=== PATIENT | female | born 2000 | race Caucasian/White ===

== ENCOUNTER 2022-03-12 09:53 | Outpatient (RCR) | payer OTHER, SELFPAY ==
--- NOTE | 2022-03-12 10:07 | BH.SGPN.GN ---
Behaviors/Verbalizations/Mental Status: []Client alert and oriented, casually dressed and groomed. Eye contact good. Motor activity appropriate. Speech within normal limits. Affect congruent, mood anxious. Thoughts linear, logical, no signs of hallucinations or delusions. Client Response/Progress/Benefit: []Client responded well to session AEB sharing and listening attentively to others.This is client?s first day of IOP treatment. Client participated in group discussion of the benefits and barriers to change, providing that change allows for ?a different outlook on things?. Client participated in experiential activity illustrating the emotions that go along with making change, and how they can be both positive and negative, appearing connected to group processing. Clinician provided psychoeducation on the cognitive triangle, discussing how thoughts, emotions and behaviors are connected. Client appeared to benefit from increase knowledge of the benefits and barriers to making change, as well as how emotions are affected by change. Will continue IOP treatment to increase application and knowledge of healthy coping skills and prevent decompensation. Narrative Note: []
--- NOTE | 2022-03-12 10:49 | BH.MDN_ITS ---
Multi-Disciplinary Note - Note 45-min Individual Time Started:: 08:45 Date: 03/12/22 Purpose of session/treatment goals addressed:: The purpose of this session was to gather information on client's current stressors, symptoms, and treatment goals. Another goal was to build rapport and provide psychoeducation on managing change. Eye Contact:: Good Motor Activity:: Appropriate Appearance:: Neat, Casual Speech:: Appropriate Mood:: Anxious, Irritable, Depressed Affect:: Constricted, Other - guarded Thoughts:: Linear, Logical, No evidence of hallucinations/delusions noted Staff Interventions:: motivational interviewing, psychoeducation on: - managing change, rapport building, strengths perspective, treatment planning, reviewed DSM-5, completed risk assessment / safety planning - completed [place] CSSR screening, goal setting Client Response:: Client responded well to session, open to meeting with therapist. Client reports feeling anxious and somewhat skeptical about the group setting. Shared that she has struggled with her mental health for the past 5-6 years and has found therapy to be little help. Expressed that she is used to starting to feel better and then ?something bad happens?. Insight that she often begins to fear something ?bad? will happen when she begins to feel stable, which has resulted in self-sabotaging behaviors in the past. Reports that her parents return home from [place] has made her living environment much more stable over the past 2-3 weeks and has prevented her from engaging in self-destructive behaviors such as binge drinking or self-harming. Reports she believes she would continue to engage in these behaviors if her parents had not returned home. Reports she has a hx of self-harming and last did so approx.. 3 weeks ago while intoxicated. Reports experiencing passive thoughts of overdosing on her medications at that time as well. Denies any active plans, gestures, or intent at that time. Reports hx of passive thoughts of and one other occasion in which she had a plan to overdose when she was 17. Denies active plans or intent at that time either. Reports her family, friends, and goals for future are protective factors. Reports she currently has been struggling with stress related to her job and being placed on mandatory overtime, as well as continuing to adjust to the end of a 5 year long relationship. Shared experiencing anxiety and increased stress when having to interact with her ex. Currently endorsing passive thoughts of , mood swings, irritability, isolation, panic attacks, crying spells, loss of appetite, loss of motivation, loneliness, apathy, and fatigue. Shared her current sx are impacting her relationship with her parents and that she has been taking her frustrations out on them. Expressed not knowing how to cope when her emotions feel overwhelming and that if she could, she would continue to drink. Shared wanting to ?change? several aspects of her life such as her coping skills, her relationship with herself/confidence, and her ability to regulate her emotions. Expressed goes of wanting to improve her physical and emotional/mental health but is afraid of trying and failing. Expressed struggling with change as she fears ?the unknown?. Receptive of discussion reviewing managing change and common emotions associated with change. Discussed pros of beginning to make small mental health changes vs. costs of maintaining her current coping behaviors. Risks/Concerns:: Client denies any current suicidal ideation, plan, or intent. Denies access to lethal means and reports feeling safe in the home. No reports of self-harming in the past week. Denies any homicidal ideation, plan, or intent. Reports her friends and family as primary protective factors. Future- oriented. Aware of and willing to utilize crisis resources or seek emergency services should she feel unable to maintain safety at any time. Progress Toward Goals/Plan:: Client reports being skeptical but willing to try the IOP program and discussed wanting to learn new skills for improving emotion regulation, improving confidence, and better managing her daily stressors. Client?s first day of IOP tx, so no significant progress noted. Client will continue IOP tx to prevent decompensation, improve mood stability, and learn healthy coping skills for distress tolerance. Time Stopped:: 09:33
--- NOTE | 2022-03-12 11:10 | BH.SGPN.GN ---
Behaviors/Verbalizations/Mental Status: []Client alert and oriented, neatly dressed and groomed. Eye contact good. Motor activity appropriate. Speech within normal limits. Affect constricted, mood anxious. Thoughts linear, logical, no signs of hallucinations or delusions. Client Response/Progress/Benefit: []Client responded well to session, attentive. Did well to process activity and work with group to relate the strategies used to overcome barriers in the activity to managing change in own life. Client identified a change they would like to make as improving her mental health. Client reports barriers to change as fear of the unknown and what if thinking. Client shared to work towards this change client wants to focus on ?taking treatment day by day.? Appeared to benefit from identifying a small goal to work towards. First day of IOP tx. Client will continue IOP tx to prevent decompensation, gain healthy coping skills, and improve daily functioning. Narrative Note: []
--- NOTE | 2022-03-12 15:17 | BH.COMM ---
Communication Note - Communication with Client Communication Note: Met with patient to complete initial paperwork. No significant changes since pre-admission screening. Completed [place] Suicide Screening. Low to moderate risk. Pt has no hx of prior suicide attempts or hospitalizations. Hx of chronic, passive SI for the past 5 years. Reports vague plan to overdose on two occasions, once when 17 and once 3 weeks ago. Denies any active plans or intent at the time. Reports she was intoxicated when having the thoughts 3 weeks ago and they went away easily once her friends distracted her with other topics of conversation. Denies any suicidal ideation since. Hx of self-harming via cutting and burning over the past 5 years. Last occasion was again 3-4 weeks ago while intoxicated. Reports this was separate from the occasion in which she experienced suicidal ideation. Pt reports she cut and burned her forearm and has minor laceration yang from this. Reports she has not engaged in any self-harming behaviors since and denies any urges to do so. Denies access to lethal means. Pt denies hx of HI, plan or intent. Case discussed with Dr. Jones with plan to admit to IOP level of care with dx of Major depressive disorder, recurrent, severe without psychosis, F33.2
--- NOTE | 2022-03-12 15:42 | BH.PSA_ITS ---
Source of Information - Presenting Problems/Circumstances Problems, Referral Source, Mental Status, Client: Pt is a 21-year-old female who was referred to the [facility] behavioral health IOP program by her counselor due to worsening depression and anxiety for the past 6 months. Reports primary stressor impacting mental health as the end of her 5 year relationship approximately 3 months ago. Psychiatric Presentation - Psych Issues & Need for Admission Psychiatric Issues:: depression, racing thoughts, anxiety, mood swings, irritability, substance abuse Past Psychiatric History - Treatment Hx Treatment History: No psychiatric admissions ever. No suicide attempts ever. She was first depressed at age 15 and has a long history of depression. Pt reports she first took meds for depression at age 15. She first cut herself at age 15 and did this until age 18 and now does it only rarely off and on. She got counseling at age 17 which was needed after a break-up with a boyfriend and has continued inconsistently since. Reports this has been somewhat helpful at times but she struggles with consistency. She has a counselor, Jeana Schneider, whom she sees once a week but has only been seeing this person for 2 weeks. First hospitalization:: Denies Most recent hospitalization:: Denies Medication Trials:: Yes - Prozac, Lexapro ECT Therapy:: No Age of first mental health symptoms: age 15 when pt reports she began feeling depressed and first engaged in self-harming behaviors Current providers for mental health treatment (counselor, psychiatrist, shoe caser, etc.): Jeana Schneider whom pt sees weekly for the past 2 weeks for outpatient counseling. Development & Family of Origin - Childhood Significant Childhood Events: Pt began self-harming at 15. Denies any other significant childhood events - Family Who currently lives in your home?: Pt currently living with her parents in their home following a break-up resulting in pt not wanting to live in her apt alone. Describe family composition:: Pt is the youngest of 2 children. She has a sister 6 years older whom she is close with. Pt reports she is close with her parents and that they have a happy marriage - Family History Family Hx of Psychiatric or AOD Problems: Mother has a history of anxiety and depression and takes Prozac. Mother and maternal grandmother are alcoholics. Maternal grandmother may have been bipolar. No completed suicides in the family. Ethnicity - Culture Do you identify yourself with any particular cultural, ethnic background, or community?: No - Sexuality Sexual Orientation: Heterosexual Spirituality - Confucianism Do you currently identify with any organized advent?: Unspecified - Beliefs Is there a particular form of support from this community you can use for your recovery?: No Mental Status - Memory Recent Memory: Fair Remote Memory: Fair - Concentration Concentration: Fair - Eye Contact Eye Contact: Good - Speech Speech: Articulate, Congruent - Thought Process Thought Process: Logical Insight: Fair Judgment: Fair Behavior: Agitated, Anxious - Appearance Appearance: Appropriate - Mood Mood: Anxious, Depressed, Irritable - Affect Affect: Appropriate/calm Suicide Assessment - Suicidal Ideation Have you ever felt like hurting yourself?: Yes Please explain:: hx of self-harming via cutting, hx of binge drinking and not caring if she were hurt, hx of SI w/ vague plan to overdose Were you using ETOH/drugs at the time?: Yes - alcohol during last self-harming incident Suicidal Intentional Rating Scale (SIRS): Suicidal thoughts (past) Physician Notification: If Active suicidal thoughts/Will not contract for safety is checked, contact physician and document in the Physician Notification section below. Violent Behavior/Abuse History - Homicidal Ideation Do you have any homicidal thoughts? If so, explain:: No Is there a known potential victim? If yes, who:: No - Abuse Have you ever been abused?: No - Life Events Are there any other significant life events?: Financial loss - due to recent break-up pt is now responsible for paying for her apt on her own, Hardships - recent break-up in which pt's ex moved out of the apt - Safety Do you ever feel threatened in your home? If yes, describe:: No Adult Social History - Age 20 to Present Describe your current support system:: Reports she has several friends whom are supportive and a close co-worker who is a primary support, reports her parents are also supportive but she does not always feel comfortable sharing with them Substance Use - Substance Substance Use Type: Alcohol - She first used alcohol at age 18 he used to drink twice a year and then increase to social drinking. The patient has been self- medicating with alcohol and she most recently used alcohol 1 drink 3 days ago. Prior to that she used alcohol 3 weeks ago extensively. For the past 2 months she has been u, Tobacco - 1-3 cigarettes 3x/year, Caffeine - Duration of Use How long have you used substances?: since age 18 - IV Substance Use Do you have a history of IV use?: Denies Leisure/Social Activities - Interests What do you enjoy or might be interested in learning about?: Pt reports enjoying time with friends, fashion, and working out. She is interested in learning more on healthy relationships and how to better manage her own emotions. 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 Service - Service Have you ever been in the ?: No Legal History - Records Have you had any past legal charges?: No Do you have any current legal charges?: No Have you ever been incarcerated? If yes, describe:: No - Court Orders Have you had any past court orders for psychiatric treatment?: No Do you have a present court order for psychiatric treatment?: No Problem Checklist - Current Problem Areas Problem List: Depressed mood/sad, Anxiety, Anger/aggression, Impulsivity, Substance use, Additional psychosocial stressors - recent break-up Discharge Planning Needs - Anticipated Follow-Up Private Therapist/Psychiatrist:: Jeana Schneider counselor Release of Information Signed:: Yes Diagnoses - Diagnoses Diagnosis #1:: Major depressive disorder, recurrent, severe without psychosis Diagnosis #2:: Panic disorder Diagnosis #3:: Borderline personality disorder Diagnosis #4:: Alcohol use disorder Interpretive Summary - Interpretive Summary Interpretive Summary: Pt is a 21-year-old female who was referred to the [facility] behavioral health IOP program by her counselor due to worsening depression and anxiety for the past 6 months. Reports primary stressor impacting mental health as the end of her 5 year relationship approximately 3 months ago. Reports she had been living with her ex for 1 year which had become verbally and emotionally toxic. Reports recently moving in with her parents due to difficulties in managing her mental health sx and struggling to live alone following the break-up. Reports self-medicating with alcohol daily when not at work up until moving in with her parents 2 weeks ago. Reports independently drinking up to a 6-pack a night and often blacking out or engaging in high-risk behaviors when intoxicated. Reports self-harming via burning while intoxicated approx.. 3 weeks ago. Additionally reports hx of damaging her own property, engaging in high-risk sexual behavior, and lashing out verbally at supports while intoxicated as well. Denies self-harming in the past 3 weeks. Current sx include loneliness, isolation, mood swings, irritability, hopelessness, helplessness, worthlessness, apathy, and guilt. Reports low motivation, decreased concentration, and low energy. Denies active SI, but reports chronic passive thoughts of not caring if she were to . She describes her self as a worrier by nature and reports frequently ruminating negatively. She also was vomiting from anxiety and depression but mostly anxiety. She was vomiting daily but this has improved since recent weeks and is now only vomited once in the past 3 weeks. She denies homicidal ideation, hallucinations, delusions, or symptoms of ruth ever. She admits to being on Prozac in the past and went off her Prozac for 7 months and then restarted it 2 months ago. She felt it was not helping her as much as it did before. Reports current sx are impacting her ability to function at baseline, impacting relationships, and beginning to cause difficulties in regulating emotions in the workplace. Treatment Plan Recommendations - Recommendations Guidelines: Special needs identified to be included in the development of an individualized treatment plan regarding past psychiatric history and treatment, developmental events, family relationships/events/culture, past and/or current educational, occupational, social, and residential experience, and legal status. Recommendations:: The patient will start the IOP program at [facility] as the structure, support, education and group therapy will hopefully prevent worsening of the patient's symptoms which might require hospitalization.
--- NOTE | 2022-03-12 15:42 | BH.MTP ---
[facility] Treatment Plan - Patient Information Program Physician:: Dr. Delaney Jones Primary Therapist:: PROSPER Rodriguez - Psychiatric Diagnoses Psychiatric Diagnoses:: 1. Major depressive disorder, recurrent, severe without psychosis. 2. Panic disorder. 3. Borderline personality disorder. 4. Alcohol use disorder Diagnosis Code(s):: F 33.2 - Estimated LOS Estimated LOS (in weeks):: 6 Problem/Goal #1 - Problem/Goal #1 Stated Goal:: Client will reduce depressive symptoms, worthlessness, irritability, hopelessness, passive thoughts of , and apathy associated with major depressive disorder AEB reduction of scores on the depressive domain of the DSM-5 cross-cutting scales. Description of Barriers: Limited support, conflict with current support, hx of alcohol misuse, low motivation, ambivalence to tx Functional Impact: Pt is a 21-year-old female who was referred to the [facility] behavioral health IOP program by her counselor due to worsening depression and anxiety for the past 6 months. Reports primary stressor impacting mental health as the end of her 5 year relationship approximately 3 months ago. Reports she had been living with her ex for 1 year which had become verbally and emotionally toxic. Reports recently moving in with her parents due to difficulties in managing her mental health sx and struggling to live alone following the break-up. Reports self-medicating with alcohol daily when not at work up until moving in with her parents 2 weeks ago. Reports independently drinking up to a 6-pack a night and often blacking out or engaging in high-risk behaviors when intoxicated. Reports self-harming via burning while intoxicated approx.. 3 weeks ago. Additionally reports hx of damaging her own property, engaging in high-risk sexual behavior, and lashing out verbally at supports while intoxicated as well. Denies self-harming in the past 3 weeks. Current sx include loneliness, isolation, mood swings, irritability, hopelessness, helplessness, worthlessness, apathy, and guilt. Reports low motivation, decreased concentration, and low energy. Denies active SI, but reports chronic passive thoughts of not caring if she were to . She describes her self as a worrier by nature and reports frequently ruminating negatively. She also was vomiting from anxiety and depression but mostly anxiety. She was vomiting daily but this has improved since recent weeks and is now only vomited once in the past 3 weeks. She denies homicidal ideation, hallucinations, delusions, or symptoms of ruth ever. She admits to being on Prozac in the past and went off her Prozac for 7 months and then restarted it 2 months ago. She felt it was not helping her as much as it did before. Reports current sx are impacting her ability to function at baseline, impacting relationships, and beginning to cause difficulties in regulating emotions in the workplace. - Objectives Objective #1 Stated Objective: Client will learn and utilize 2-3 healthy coping strategies to manage depressive symptoms Interventions: Therapist will help client identify distorted, negative beliefs about self and replace with more realistic, affirmative messages. Therapist will use CBT to help client increase insight to the connection between thoughts, emotions, and behaviors. Therapist will encourage client to practice thought challenging. Discharge Criteria: Able to identify and consistently use 2-3 healthy coping skills for depression. Reduction on DSM-5 depression domain. Target Date: 04/24/22 Review Date: 04/03/22 Objective #3 Stated Objective: Client will improve relationship with self and reduce discomfort in being alone by learning and engaging in independent practices that help enhance a sustained sense of trinity. Interventions: Use validation, dialectical strategies and cognitive-behavioral strategies to help the client manage, reduce, or regulate maladaptive behaviors (e.g., angry outbursts, binge drinking, abusive relationships, high-risk sex, uncontrolled spending) thoughts and feelings. Facilitate the client?s personal and interpersonal growth by helping him/her choose experiences that strengthen self-awareness, personal values, and appreciation of life. Discharge Criteria: Client will report reduced depressive sx and improved sense of self-confidence, as well as be able to identify and report engaging in 2-3 self-care practices Target Date: 04/24/22 Review Date: 04/03/22 Problem/Goal #2 - Problem/Goal #2 Stated Goal:: Client will reduce overall frequency, intensity, and duration of anxiety to improve functioning AEB by a reduction of scores on the anxiety domain of the DSM-5 cross-cutting scales. Description of Barriers: Limited support, conflict with current support, hx of alcohol misuse, low motivation, ambivalence to tx Functional Impact: Pt is a 21-year-old female who was referred to the [facility] behavioral health IOP program by her counselor due to worsening depression and anxiety for the past 6 months. Reports primary stressor impacting mental health as the end of her 5 year relationship approximately 3 months ago. Reports she had been living with her ex for 1 year which had become verbally and emotionally toxic. Reports recently moving in with her parents due to difficulties in managing her mental health sx and struggling to live alone following the break-up. Reports self-medicating with alcohol daily when not at work up until moving in with her parents 2 weeks ago. Reports independently drinking up to a 6-pack a night and often blacking out or engaging in high-risk behaviors when intoxicated. Reports self-harming via burning while intoxicated approx.. 3 weeks ago. Additionally reports hx of damaging her own property, engaging in high-risk sexual behavior, and lashing out verbally at supports while intoxicated as well. Denies self-harming in the past 3 weeks. Current sx include loneliness, isolation, mood swings, irritability, hopelessness, helplessness, worthlessness, apathy, and guilt. Reports low motivation, decreased concentration, and low energy. Denies active SI, but reports chronic passive thoughts of not caring if she were to . She describes her self as a worrier by nature and reports frequently ruminating negatively. She also was vomiting from anxiety and depression but mostly anxiety. She was vomiting daily but this has improved since recent weeks and is now only vomited once in the past 3 weeks. She denies homicidal ideation, hallucinations, delusions, or symptoms of ruth ever. She admits to being on Prozac in the past and went off her Prozac for 7 months and then restarted it 2 months ago. She felt it was not helping her as much as it did before. Reports current sx are impacting her ability to function at baseline, impacting relationships, and beginning to cause difficulties in regulating emotions in the workplace. - Objectives Objective #1 Stated Objective: Client will identify 2-3 anxiety triggers and 2 calming coping skills to reduce anxiety as shown by decreased DSM-5 cross cutting symptom measure scores. Interventions: Through individual and group counseling will teach the client calming/relaxation skills (e.g., muscle relaxation, mindful breathing) and how to discriminate better between relaxation and tension; teach the client how to apply these skills to his/her daily life. Discharge Criteria: Able to identify and consistently utilize per self-report 3 calming skills to manage anxiety and improve functioning. Target Date: 04/24/22 Review Date: 04/03/22 Objective #2 Stated Objective: Client will identify 2-3 cognitive distortions that lead to rumination and learn 2-3 ways to manage these thoughts to better manage anxiety. Interventions: ? Therapist will use CBT and DBT techniques to help client gain awareness of thinking errors and learn how to more effectively handle negative thoughts. ? Therapist will provide education on the most common cognitive distortions and teach client the connection between thoughts, emotions, and feelings. ? Therapist will assist client in identifying, challenging, and replacing dysfunctional thoughts with positive, more realistic thoughts. Discharge Criteria: Pt will identify and be able to successfully replace 2-3 distortions causing panic and increased anxiety Target Date: 04/24/22 Review Date: 04/03/22
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
--- NOTE | 2022-03-14 11:05 | BH.SGPN.GN ---
Behaviors/Verbalizations/Mental Status: []Pt alert and oriented, neatly dressed and groomed. Eye contact good. Motor activity appropriate. Speech within normal limits. Affect constricted, mood anxious. Thoughts linear, logical, no signs of hallucinations or delusions. Client Response/Progress/Benefit: []Pt receptive of session, engaged throughout AEB pt actively listening and contributing to discussion, as well as taking notes. Pt completed worksheet identifying personal pitfalls impacting mental health progress. Pt identified the following pitfalls: using unhealthy coping skills, lashing out, self-sabotage, and letting others? emotions control her. Group learned different coping skills to help manage pitfalls. Pt selected the following coping skills to help with pitfalls: practicing mindfulness, exercising, and getting outside. Benefited from identifying personal pitfalls and strategies to overcome these pitfalls. Will continue IOP tx to prevent decompensation, improve distress tolerance, and improve daily functioning. Narrative Note: []
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
--- NOTE | 2022-03-14 14:04 | BH.DR.ITP ---
Initial Treatment Plan Patient Information Visit Information: ADMISSION DATE: EXPECTED LOS: 4-6 weeks Problems/Symptoms Problem #1:: Depression Symptom:: Sadness, hopelessness, worthlessness, guilt, low energy, passive thoughts of , passive suicidal ideation, irritability, apathy, isolation Problem #2:: Anxiety Symptom:: Rumination, worry, panic attacks, nightmares, flashbacks, avoidance
--- NOTE | 2022-03-19 09:00 | BH.SGPN.GN ---
Behaviors/Verbalizations/Mental Status: [] Eye contact is good. Motor activity is appropriate. Appearance is casual. Speech is Appropriate. Mood is anxious and dysthymic. Affect is constricted. Thoughts are linear and logical. No evidence of psychosis. Reviewed daily check in sheet and no reports of suicidal ideations or intent. Client Response/Progress/Benefit: [] Pt was an active participant in group discussion. Active participant. Provided appropriate feedback. Pt reported she has been feeling irritable the last five days, which she is unsure is a side effect of her new medication. Pt reported she has been struggling because she is torn about a current friendship turning into a relationship. Pt stated she feels like she has PTSD from her break up in January after 6 years of dating so is nervous about starting another relationship. Receptive to feedback from peers. Pt identified mental health win as using belly breathing to help her cope with increased irritability. Benefited from group support, encouragement, and feedback. Will continue in IOP to prevent decompensation, improve daily functioning, and improve healthy coping skills.
--- NOTE | 2022-03-19 10:15 | BH.SGPN.GN ---
Behaviors/Verbalizations/Mental Status: []Pt alert and oriented, casually dressed and groomed. Eye contact good. Motor activity appropriate. Speech within normal limits. Affect constricted, mood agitated. Thoughts linear, logical, no signs of hallucinations or delusions. Client Response/Progress/Benefit: []Pt responded well to session AEB sharing and listening attentively to others. Group discussed the benefits of managed anger and anger as a secondary emotion. Pt completed anger iceberg worksheet, reporting outward personal signs of anger as making impulsive decisions, throwing things, and drinking. Identified underlying emotions that contribute to anger including pain, stress, and rejection. Appeared to benefit from increased knowledge of the underlying emotions that impact anger and increased self-awareness of the internal and external consequences of anger. Will continue IOP tx to prevent decompensation, increase the use of healthy coping skills, and reduce impulsivity. Narrative Note: []
--- NOTE | 2022-03-19 11:15 | BH.SGPN.GN ---
Behaviors/Verbalizations/Mental Status: []Client alert and oriented, casually dressed and groomed. Eye contact good. Motor activity appropriate. Speech within normal limits. Affect congruent, mood depressed, anxious, irritable. Thoughts linear, logical, no signs of hallucinations or delusions. Client Response/Progress/Benefit: []Pt was engaged throughout AEB participating in discussion and taking notes. Pt reported connecting with psychoeducation portion reviewing importance of identifying physical warning signs for anger. Contributed as group brainstormed healthy coping skills for better managing anger which included: deep breathing, journaling, focusing on what?s in their control in the moment, exercise, communicating with supports when calm, and self-reflection. Pt appeared to benefit from identifying different techniques to manage anger as well as gaining awareness of the costs of anger. Pt reported that when anger is unmanaged she lashes out on her supports and becomes restless, or avoids others. Pt selected practicing radical acceptance of what is out of her control, as well as communicating her need for a break from the conversation as strategies for better managing her anger. Will continue IOP tx prevent decompensation, and continue to improve mood stability, and promote use of emotional regulation skills. Narrative Note: []
[2022-03-21 11:48] VITALS: BP 127/88; PULSE 66
--- NOTE | 2022-03-22 10:05 | BH.SGPN.GN ---
Behaviors/Verbalizations/Mental Status: []Client alert and oriented, casually dressed and groomed. Eye contact good. Motor activity appropriate. Speech within normal limits. Affect congruent, mood anxious. Thoughts linear, logical, no signs of hallucinations or delusions. Client Response/Progress/Benefit: []Client responded well to session AEB listening attentively to others. Client appeared connected to group discussion defining fixed mindset and what it can look like. Client was engaged throughout group discussion of how fixed mindset affects mental health and why we use fixed thoughts. Client participated in experiential activity encouraging clients to find solutions to a seemingly impossible task. Client aided group in problem solving throughout. Client identified a fixed thought keeping her stuck as ?I?m too much to handle?. Client appeared to benefit from increased knowledge of fixed mindset and self-awareness of personal fixed thoughts. Will continue IOP treatment to increase anxiety management skills and decrease negative self-talk to improve daily functioning. Narrative Note: []
--- NOTE | 2022-03-22 11:10 | BH.SGPN.GN ---
Behaviors/Verbalizations/Mental Status: []Pt alert and oriented, casually dressed and groomed. Eye contact good. Motor activity appropriate. Speech within normal limits. Affect constricted, mood anxious. Thoughts linear, logical, no signs of hallucinations or delusions. Client Response/Progress/Benefit: []Pt engaged during activity and discussion AEB providing some input, connecting with peers, as well as taking notes throughout. Pt did well to engage as group worked on identifying characteristics and benefits of adopting a growth mindset. Worked with fellow participants in reframing the example fixed thoughts into growth mindset thoughts, providing support throughout. Reframed personal fixed thought of ?I?m not going to get better? with growth mindset thought of ?change doesn?t happen overnight, it takes time.? Benefitted from discussing benefits of growth mindset and brainstorming strategies for prompting growth-mindset. Will continue IOP tx to reduce the use of unhealthy coping skills, improve overall functioning, and combat distortions. Narrative Note: []
--- NOTE | 2022-03-22 15:49 | BH.MDN ---
Multi-Disciplinary Note - Note 60-min Individual Time Started:: 09:27 Date: 03/22/22 Purpose of session/treatment goals addressed:: Reviewed current symptoms, stressors, and progress in IOP. Discussed small goals for improving independence and becoming comfortable with spending time alone. Eye Contact:: Good, Other - tearful throughout Motor Activity:: Appropriate Appearance:: Casual Speech:: Appropriate Mood:: Anxious, Depressed Affect:: Congruent Thoughts:: Linear, Logical, No evidence of hallucinations/delusions noted Staff Interventions:: thought challenging, motivational interviewing, psychoeducation on: - borderline personality disorder, maintenance cycles, strengths perspective, goal setting Client Response:: Pt receptive of session, actively engaged throughout. Reports she did not complete the Borderline Personality Disorder self-assessment assigned for homework as she was experiencing difficulties with focus and racing thoughts when trying to do so. Shared ?I?m really glad I?m meeting with you today? as she reports struggling with being ?really in my own head? the last several days. Discussed irritability, increased sensitivity, and lashing out at her supports as a result. Reports feeling frustrated and defeated as a result as pt noted beliefs she feels like ?things should be improving by now but they?re not?. Receptive of working with therapist to explore barriers contributing to current sx and expressed connecting with information provided on maintenance cycles. Able to see impact of her own thoughts and behaviors in maintaining depression and irritability. Self-reports she often waits for external factors or other people to influence her mood, rather than challenging her own thoughts or changing her behaviors. Shared wanting to work on improving her confidence and ability to provide self-validation as she often relies on others to provide her with a sense of worth and value. Discussed things pt used to enjoy doing independently prior to her last relationship. Discussed art and being creative as something she would like to get back into doing for herself. Connected with psychoeducation on Borderline Personality Disorder and common associated sx including fear of rejection and abandonment, relationship issues, and identify disturbance. Reflected that she believes she desire to feel loved and valued is driving her to consider entering into a new relationship before she is ready. Discussed rationally knowing that this would be unhealthy, but struggling with challenging the emotions associated with wanting the relationship. Open to reviewing the pros and cons of pursuing the relationship on her mental health, the friendship with that individual, and her ability to develop a stronger sense of independence. Risks/Concerns:: None noted . Pt denies any SI, plan, or intent as of this date 03/22/22. Progress Toward Goals/Plan:: Some progress noted, though limited. Consistently attending IOP. Engaged and attentive in the program. Takes notes and discusses group materials at times in individual sessions. Reports trying to utilize healthy coping skills in times she feels overwhelmed or irritable but finds limited success. Pt reports struggling most with negative thinking patterns, feeling nothing is going to help, irritability, poor communication with supports, and reassurance seeking. Reports this contributes to overall depression and continues to reinforce negative thoughts about self. When alone she struggles to combat negative and ruminating thoughts, though has insight into he self-sabotaging behaviors and expresses a desire to develop the skill to better challenge and reframe her thought patterns. Struggles with in the moment distress tolerance skills as well, further impeding consistent mood stability. Plan is to continue in IOP to maintain safety, increase healthy coping, and stabilize mood. Time Stopped:: 10:17
--- NOTE | 2022-03-28 09:03 | BH.SGPN.GN ---
Behaviors/Verbalizations/Mental Status: []Eye contact is fair to good. Motor activity is appropriate. Appearance is casual. Speech is Appropriate. Mood is anxious, depressed, irritable. Affect is congruent. Thoughts are linear and logical. No evidence of psychosis. Reviewed daily check in sheet and no reports of suicidal ideations or intent. Client Response/Progress/Benefit: []Pt was an active participant in group discussion. Provided appropriate feedback. Pt reported feeling ?down? today as she has been struggling with patience regarding her mental health. Expressed knowing that progress takes time but she is struggling to challenge expectations that she ?should be better? by now. Indicated several positives such as hanging out with healthy supports and trying to change her environment when feeling overwhelmed. Pt discussed a recent setback in which she engaged in self-sabotaging behaviors via consuming alcohol when upset over the weekend. However, did well to identify that recognizing this would not be helpful to her mental health long-term and stopping the behavior was personal progress for her. Benefited from group support, encouragement, and feedback. Will continue in IOP to continue to improve daily functioning, as well as promote sobriety and application of healthy coping skills for better managing anxiety and depression. Narrative Note: []
--- NOTE | 2022-03-28 11:10 | BH.SGPN.GN ---
Behaviors/Verbalizations/Mental Status: []Pt alert and oriented, casually dressed and groomed. Eye contact good. Motor activity appropriate. Speech within normal limits. Affect constricted, mood depressed. Thoughts linear, logical, no signs of hallucinations or delusions. Client Response/Progress/Benefit: []Pt was attentive and took notes, quiet unless prompted but sharing in her small group. Pt completed strengths exploration worksheet and identified personal strengths to include: love, humor, and independence. Pt shared that working to recognize these personal strengths more consistently will help improve pt?s mood, help pt feel more productive, and find humor in difficult moments. Shared wanting to focus on fostering personal strengths by putting away her phone for 20 minutes each night and doing something she enjoys or is productive. Benefited from identifying personal strengths and strategies for enhancing use of identified strengths. Pt to continue IOP tx to prevent decompensation, prevent relapse, and increase emotional regulation skills. Narrative Note: []
--- NOTE | 2022-03-28 12:13 | PCM.BH.PN_ITS ---
Progress Note Progress Note: History of Present Illness/Interim History: [] The patient is a 21-year-old female with a history of depression and anxiety and borderline personality disorder and alcohol use disorder who is seen in follow-up at the [facility] behavioral health IOP program. I last saw the patient 2 weeks ago. According to the staff the patient has had inconsistent attendance due to her chronic issue of migraine headaches. Not much progress has been noted by the staff. The patient started the Effexor XR as scheduled 2 weeks ago but is uncertain if she is taking 75 mg or a 37.5 mg capsule or pick tablet. She is instructed to look at the bottle when she gets home. She states that she is tolerating the medication and but feels a little numb. Her anxiety has lessened but she remains depressed. She has not had any panic attacks in the last 2 weeks. She did use alcohol 4 days ago she had 3 alcoholic drinks. She states that her alcohol use has decreased markedly. She denies any self-harm since last visit. She has feelings of hopelessness still but has been able to function at work. She admits to passive thoughts that she would not care if she . She now denies any suicidal ideation. She also denies homicidal ideation, hallucinations, delusions or symptoms of ruth. She vomited once in the past 2 weeks as her anxiety has lessened. Current Psychiatric Medications: [] Prozac was decreased to 30 mg daily 2 weeks ago; Effexor XR 37.5 mg for 5 days followed by 75 mg p.o. daily. Patient is uncertain that she has done this in the past 2 weeks and she will check the dose at home. Mental Status Examination: [] The patient is a 21-year-old female who appears normal for stated age and is casually dressed and groomed with good hygiene. She has no psychomotor agitation or retardation. Eye contact is fair to good and speech is normal rate and rhythm and fluent with no pressure. Mood is depressed. Affect is constricted. Thought process is goal-directed and organized. Thought content: There is evidence of passive thoughts of . There is no evidence of suicidal ideation, homicidal ideation, plan for suicide, hallucinations or delusions. Reality testing is intact. Intelligence is average. Judgment is intact. Insight is fair. Impulsivity is moderate to hi gh. Diagnoses: [] 1. Major depressive disorder, recurrent, severe without psychosis 2. Panic disorder 3. Borderline personality disorder 4. Alcohol use disorder 5. Primary support issues Plan: [] The patient will continue the IOP program at [facility] as the structure, support, education and group therapy will hopefully prevent worsening of the patient's symptoms which might require hospitalization. The patient felt safe during the interview and if it anytime she does not feel safe she will let us know or go to the emergency room. The risks, options, possible complications and side effects of the medications were again discussed with the patient and she understands and accepts these. She agrees to continue to try to eliminate all alcohol use. She will continue to avoid energy drinks and caffeine use. She agrees to discontinue her Prozac. She agrees to continue her Effexor XR at 75 mg p.o. daily or increase to that if she is only taking 37.5 mg. She will check her bottle at home. Refill is done for her 75 mg dose of Effexor XR. I will see the patient in follow-up in 2 weeks and she will continue to follow-up with her outpatient psychiatric and medical providers.
--- NOTE | 2022-03-29 08:54 | BH.COMM ---
Communication Note - Communication with Client Communication Note: Pt scheduled for individual session and group on this date; however, pt father called to cancel for pt as he reports she was asked to stay for an additional shift at work. Pt scheduled for group next on 04/03 and will meet individually at that time as well.
== END 2022-03-31 23:59 ==
LOC: BHIOP 09:53
PROVIDERS: Referring Provider Psychiatry & Neurology Psychiatry; Visit Provider Psychiatry & Neurology Psychiatry
DX: F33.2 Major depressive disorder, recurrent severe without psychotic features (principal); F41.0 Panic disorder [episodic paroxysmal anxiety]; F60.3 Borderline personality disorder; Z72.89 Other problems related to lifestyle; Z79.899 Other long term (current) drug therapy
CPT/HCPCS: S9480; 90834; 90837; 90853

== ENCOUNTER 2022-04-02 08:01 | Outpatient (RCR) | payer OTHER, SELFPAY ==
[2022-04-01 00:47] VITALS: BP 127/88; PULSE 66
--- NOTE | 2022-04-03 09:00 | BH.SGPN.GN ---
Behaviors/Verbalizations/Mental Status: []Pt alert and oriented, casually dressed and groomed. Eye contact good, motor activity appropriate, speech within normal limits. Affect, congruent. Mood, euthymic. Thoughts linear, logical, no signs of hallucinations or delusions. Reviewed pt's daily symptom tracker, no SI, plan, or intent reported on this date. Client Response/Progress/Benefit: []Pt responded well to session, engaged and attentive throughout. Pt reports emotion of the day as ?hopeful, noting that she feels she is beginning to see improvements in her overall mood and ability to manage her mental health sx. Discussed trying to slow down and take things ?day by day? rather than react on impulse when experiencing a stressor or frustration. Reports this has improved her ability to manage her irritability and prevent from lashing out on supports. Identified additional mental health win as spending time with healthy supports. Pt discussed current stressor reports as preparing to move back into her own apartment. Shared she feels she is emotionally ready to do so but is dreading the logistical aspects of the move but is trying to remind her that is it a healthy and positive stressor. Appeared to benefit from reflecting on progress in managing her mood and supportive feedback provided by group. Will continue IOP tx to reinforce healthy coping skills and promote mood stability, as well as continue to encourage healthy boundary setting and self-care to prevent decompensation. Narrative Note: []
--- NOTE | 2022-04-03 10:10 | BH.SGPN.GN ---
Behaviors/Verbalizations/Mental Status: []Client alert and oriented, casually dressed and groomed. Eye contact fair. Motor activity appropriate. Speech within normal limits. Affect congruent, mood anxious. Thoughts linear, logical, no signs of hallucinations or delusions. Client Response/Progress/Benefit: []Pt was an active participant in group discussion and experiential activity. Attentive during psychoeducation. Group had an interactive discussion on the benefits of emotional regulation in which pt provided insight. Group identified several benefits to emotional regulation which included; more stable relationships, improved communication, and better ability to manage stress. Group also was able to identify how emotions can impact our communication leading to; difficulty articulating our thoughts, shutting down, mind-reading, and getting defensive. Pt participated in experiential activity and reported she felt frustrated which she reported giving self a break, letting self think it through and trying to see other person's perspective. Benefited from increased awareness into how emotions can impact one's ability to effectively communicate. Will continue IOP tx to improve emotion regulation, continue use of healthy coping and increase positive thought patterns.
--- NOTE | 2022-04-03 14:29 | BH.TPR ---
Treatment Plan Review Date of Admission:: 03/12/22 Date of Treatment Plan Review:: 04/03/22 Admitting Diagnoses:: 1. Major depressive disorder, recurrent, severe without psychosis. 2. Panic disorder. 3. Borderline personality disorder. 4. Alcohol use disorder Current Diagnoses:: 1. Major depressive disorder, recurrent, severe without psychosis. 2. Panic disorder. 3. Borderline personality disorder. 4. Alcohol use disorder Patient's Response to Treatment:: Pt has been mostly consistent and engaged in IOP, she did however call off twice last week and once this week due to migraines and change in work schedule. When present in groups she is engaged and shows insight. Actively engaged in individual sessions and openly discusses sx, stressors, and able to identify barriers impacting tx. Pt reports actively applying the skills she has learned outside the tx environment as well. Pt reports improved communication with supports regarding her mental health as well. Status of Current Problems and Symptoms: Pt completed DSM-5 outcomes at 3-week interval. Overall 45% decrease in symptoms. 57% decrease in the depression domain. 75% decrease in anxiety domain. Suicidal thoughts decreased 100% in the past 2 weeks. Pt also self-reports decreased hopelessness, improved motivation and enjoyment, and overall feeling more positive and self-confident. Pt reports drinking once in the last 2 weeks. Reports she has been reaching out to healthy supports and challenging herself to re-engage in activities she used to enjoy rather than isolating or using substances. Pt did have a relapse on alcohol 2 weeks ago, however was able to prevent use from escalating and stopped herself before this turned into a several day binge as she has done in the past. Denies use since. Pt additionally plans to move back into her apartment in the next two weeks given her overall progress and improved comfort in being alone. Reports continued struggles with irritability but is improving in overall ability to manage triggers before lashing out on others or self. Staff present during review. Dr. Delaney Jones. Estefanía Mcguire- therapist. Grace Giordano- therapist. Norma Penny- nurse Problem #1 Problem Name:: Depression Status of Goals:: Has shown a 57% reduction of scores on the depressive domain since admission. Suicidal thoughts have also decreased 100% since admission. She is able to identify coping skills, however has been inconsistent in her application of skills and still struggles with use of maladaptive behaviors at times. Per self-report increased awareness of causes to depression however struggles with making time to prioritize self-care needs. Team Recommendations:: Continue IOP tx with an emphasis on healthy boundary setting and self-care skills. Continue to focus on in the moment distress tolerance Problem #2 Problem Name:: Anxiety Status of Goals:: Reduction of 75% in scores on the anxiety domain of the DSM-5. Self-report of decreased anxiety. Able to identify calming skills and reports more consistent use. She continues to have days were she struggles with ruminating thoughts and distortions related to interpersonal relationships and stressors. Continues to struggle with reassurance seeking within intimate relationships. Team Recommendations:: Continue IOP tx with an emphasis on challenging anxious thoughts and reducing unhealthy safety behaviors
--- NOTE | 2022-04-03 14:29 | BH.MDN ---
Multi-Disciplinary Note - Note 45-min Individual Time Started:: 12:15 Date: 04/03/22 Purpose of session/treatment goals addressed:: Reviewed progress and current symptoms and stressors. 4 weeks treatment plan review. Aftercare/Discharge planning. Eye Contact:: Good Motor Activity:: Appropriate Appearance:: Casual Speech:: Appropriate Mood:: Euthymic, Anxious Affect:: Full Thoughts:: Linear, Logical, No evidence of hallucinations/delusions noted Staff Interventions:: thought challenging, psychoeducation on: - healthy boundary setting, reviewed self-care wheel, CBT techniques, discharge planning, strengths perspective, reviewed DSM-5 Client Response:: Pt receptive of session and actively engaged throughout. Presents today in good spirits and discussed feeling she has so far ?made more progress than I thought was even possible?. Pt reports feeling much less anxious and ?more hopeful and excited about the future?, noting that she does not remember the last time she felt hopeful for the future. Pt and therapist reviewed outcomes from 3 week DSM-5. Pt shared feeling positively surprised and proud of the progress she has made. Attributes progress to a number of factors including IOP support, improved use of emotion regulation skills ? specifically delaying response times to stressors, identifying and reframing distortions, consistent sobriety, and increasing her independent self-care. Pt states she is learning to be more comfortable and capable of enjoying time by herself. Reports improved self-esteem and feeling more connected with herself and able to be present as a result. Does note continued issues with irritability, but feels she is more capable of managing these emotions when they occur with fewer instances of lashing out verbally at others. Additionally discussed ongoing stressor of wanting to pursue a relationship with a close friend despite knowing she has more she wants to work on mental health ramirez before feeling ready for a romantic relationship. Receptive of discussion on healthy boundary setting with herself and importance of balanced self-care in continuing to support her mental health progress and promote ongoing mood stability. Reviewed self-care wheel. Risks/Concerns:: None noted. Denies SI, plan, or intent as of this date, 04/03/22 Progress Toward Goals/Plan:: Reviewed DSM-5 outcomes as this is pt's 3rd week in the program. Overall 45% decrease in symptoms. 57% decrease in the depression domain. 75% decrease in anxiety domain. Suicidal thoughts decreased 100% in the past 2 weeks. Pt also self-reports decreased hopelessness, improved motivation and enjoyment, and overall feeling more positive and self-confident. Pt reports drinking once in the last 2 weeks. Reports she has been reaching out to healthy supports and challenging herself to re-engage in activities she used to enjoy rather than isolating or using substances. Praised for her continued effort. We discussed discharge as this is pt's 3rd week in IOP. She is linked with counseling, and reports plans to establish with [facility] [id number] for outpatient psychiatry. Will contact [facility] [id number] today. Will continue in IOP to maintain gains, prevent decompensation, and increase healthy coping. Time Stopped:: 12:01
--- NOTE | 2022-04-05 09:10 | BH.SGPN.GN ---
Behaviors/Verbalizations/Mental Status: [] Eye contact is good. Motor activity is appropriate. Appearance is casual. Speech is Appropriate. Mood is depressed. Affect is flat. Thoughts are linear and logical. No evidence of psychosis. Reviewed daily check in sheet and no reports of suicidal ideations or intent. Client Response/Progress/Benefit: [] Pt participated at times during the group discussion. Attentive. Provided appropriate feedback. Daily symptoms tracker notes 02/03 for depression and anxiety. Emotion for today is quiet. Mental health wins include completing self-care last night. It was nice to focus on me. Shared the benefit that self-care provided yesterday and how it broke the routine of simply going to sleep and watching TV after work. Believes that she is utilizing skills learned which has improved mood. She continues to struggle when alone. Often ruminates on her previous relationship. I'm adjusting from relying and being dependent on someone else to being independent. She is able to see benefits in independence. Progress noted per pt report. Benefited from group support, encouragement, and feedback. Will continue in IOP to maintain safety, increase healthy coping, and prevent decompensation. Narrative Note: []
--- NOTE | 2022-04-05 10:10 | BH.SGPN.GN ---
Behaviors/Verbalizations/Mental Status: [] Eye contact is good. Motor activity is appropriate. Appearance is causal. Speech is Appropriate. Mood is dysthymic. Affect is congruent. Thoughts are linear and logical. No evidence of psychosis. Client Response/Progress/Benefit: [] Pt was an active participant in group discussion and activity. Attentive during psychoeducation on social stigma vs self-stigma. Pt was actively involved in interactive discussion on the question of What impacts how we define and view ourselves? Pt along with peers were able to identify several aspects that impact how we view ourselves which include; past experiences/exposure, our thoughts/current mental health state, our emotions, upbringing, and what other people tell us. Pt also participated in identifying examples of social stigma for mental health illness which included; mental health isn't as serious as physical health, you're choosing this, MH isn't real, it's an excuse, and you can just turn it off. Pt stated social stigma has impacted her because she is often labeled the crazy one in relationships which negatively impacts relationships. Benefited from increased awareness of how mental health stigma can impact individuals and treatment. Plan is to continue in IOP to increase confidence, increase positive thinking, and prevent decompensation.
--- NOTE | 2022-04-10 10:06 | BH.MDN_ITS ---
Multi-Disciplinary Note - Note 45-min Individual Time Started:: 09:18 Date: 04/10/22 Purpose of session/treatment goals addressed:: Reviewed current symptoms, stressors, and progress in IOP. Addressed goal #1 of treatment plan. Eye Contact:: Good Motor Activity:: Appropriate Appearance:: Casual Speech:: Appropriate Mood:: Euthymic, Anxious Affect:: Congruent Thoughts:: Linear, Logical, No evidence of hallucinations/delusions noted Staff Interventions:: thought challenging, motivational interviewing, discharge planning, strengths perspective, goal setting Client Response:: Pt receptive of session, openly providing insights and input throughout session. Pt reports feeling more anxious and ?kerr? over the past few days, attributing this to being on her period. Shared she often struggles with regulating her emotions during this time and commonly lashes out or becomes ?snappier? towards supports. Reflected that she has however done better to identify and manage her emotions this past week than previously and is proud of herself for not lashing out at her sister and grandmother when becoming agitated while shopping together. Expressed challenging herself to take a break and call her mother to vent when feeling overwhelmed and rushed rather than trying to ignore her emotions. Described recognizing how much of a support her mother has been for her regarding her mental health and recently realizing she often ?unl oads? on her mother emotionally. Pt noted taking time to acknowledge this and thank her mother for providing unconditional love and mental health support to her throughout the past few years. Shared she has been challenging herself to communicate her mental health needs more openly with her supports as well, rather than expecting them to just know what she needs. Pt shared she has been continuing to work on improving self-care and ability to engage in independent self-care activities. Discussed getting back into the habit of creating a plan for the next day each night in order to provide more structure and consistency as well, reporting that she believes this will aid in reducing anxiety and help hold her accountable for completing her self-care goals. Identified small goals for today as purchasing cleaning supplies and tidying up the house before her parents return from a trip out of town. Noted she is looking forward to being able to prove to her parents and herself that she can handle the responsibility of caring for the home while they have been away. Risks/Concerns:: None noted . Pt denies any SI, plan, or intent as of this date 04/10/22. Progress Toward Goals/Plan:: Progress noted. Pt reports improvements in overall ability to identify triggers and regulate her emotions when beginning to feel overwhelmed or stressed out. Shared that she has additionally been making strides to improve thought challenging and taking breaks as needed which has also aided in improving communication, gratitude, and patience with her supports . Reports continuing to work on independent application of self-care skills, indicating improved self-confidence and increased sense of accomplishment as well. Reports continued difficulties in managing sx of anxiety though has seen a reduction in sx severity and frequency. Pt struggles with motivation and consistent skill application at times as well. Reports she has not consumed alcohol in past two weeks which is progress. Denies impulsive or self-harming behaviors since prior to admission as well. Pt has not follow-up up with outpatient therapist to schedule for post-IOP d/c. Denies contacting [id number] as discussed last week to establish care as well. Will continue IOP tx to maintain gains, continue to promote mood stability, and prevent decompensation. Time Stopped:: 10:00
--- NOTE | 2022-04-10 10:10 | BH.SGPN.GN ---
Behaviors/Verbalizations/Mental Status: []Client alert and oriented, casually dressed and groomed. Eye contact good. Motor activity appropriate. Speech within normal limits. Affect congruent, mood euthymic, tired. Thoughts linear, logical, no signs of hallucinations or delusions. Client Response/Progress/Benefit: [] Client responded well to session AEB taking notes, contributing to discussion, and listening attentively to others. Client was engaged throughout group discussion defining resilience and where resilience comes from. Noted that resilience can be both something you?re born with and developed over time. Shared that overcoming hardships in life can help to develop resilience and better cope with new stressors later on in life. Engaged throughout discussion on the mental health benefits of resiliency, noting that resilience can improve self-confidence. Clinician provided psychoeducation on the road to resilience and introduced how making connections with others can help build resilience. Client appeared to benefit from increased knowledge of resilience and mental health benefits of developing a resilient mindset. Client will continue IOP treatment to increase mood stability, continue to improve self-care and independent skill application, as well as prevent decompensation. Narrative Note: []
--- NOTE | 2022-04-12 09:05 | BH.SGPN.GN ---
Behaviors/Verbalizations/Mental Status: [] Eye contact is good. Motor activity is appropriate. Appearance is casual. Speech is Appropriate. Mood is depressed. Affect is flat. Thoughts are linear and logical. No evidence of psychosis. Reviewed daily check in sheet and no reports of suicidal ideations or intent. Client Response/Progress/Benefit: [] Pt participated at times during group discussions. Attentive. Provided appropriate feedback. Emotion for today is tired. Daily symptoms tracker notes 2/5 for depression, anxiety, and anger. Mental health wins include plans to spend time with support over the weekend. She reports that overall she feels as if her mental is improving stating I'm in my head at times but not as much. Shared increased confidence and decreased rumination on events in her life. She is focusing on her coping skills and trying to learn as many as she can. Shared some stressors. Overall progress noted stating I'm managing my emotions well. Benefited from group support, encouragment, and feedback. Will continue in IOP to prevent decompensation, increase healthy coping, and decrease depression. Narrative Note: []
--- NOTE | 2022-04-12 10:05 | BH.SGPN.GN ---
Behaviors/Verbalizations/Mental Status: []Client alert and oriented, casually dressed and groomed. Eye contact good. Motor activity appropriate. Speech within normal limits. Affect congruent, mood euthymic. Thoughts linear, logical, no signs of hallucinations or delusions. Client Response/Progress/Benefit: []Client responded well to session AEB providing input throughout discussion on healthy relationships, taking notes, and listening attentively to others. Group discussed the benefits of healthy relationships and factors that contribute to relationships becoming unhealthy. Client provided examples of factors impacting relationship health, including lack of trust, the media, and fear. Client participated in experiential activity modeling healthy relationship behaviors, taking on a leadership role, providing support, and aiding in problems-solving with fellow participants. Appeared to benefit from increased knowledge of the benefits of healthy relationships and characteristics of unhealthy relationships. Will continue IOP treatment to prevent decompensation, continue to promote mood stability, and encourage independence and healthy boundaries. Narrative Note: []
--- NOTE | 2022-04-12 11:08 | BH.SGPN.GN ---
Behaviors/Verbalizations/Mental Status: []Client alert and oriented, casually dressed and groomed. Eye contact good. Motor activity appropriate. Speech within normal limits. Affect congruent, mood euthymic and anxious. Thoughts linear, logical, no signs of hallucinations or delusions. Client Response/Progress/Benefit: []Client responded well to session, actively engaged AEB contributing to discussion and taking notes. Attentive and contributing as group worked to process challenge activity from previous group and identify how barriers and strengths demonstrated in activity can relate to those within own personal relationships. Able to identify healthy and unhealthy forces impacting client?s own current relationships. Reports that open communication, working on improving her own emotion regulation, and respect are relationship strengths. Reports struggling with trust and codependence at times. Client reports wanting to improve independence and continue practicing taking things one at a time to further improve her personal relationships. Appeared to benefit from reflecting upon personal relationship strengths, as well as brainstorming strategies to build healthier relationships. Pt recommended to continue IOP tx to further promote mood stability, continue working on building healthy coping skills for mood management, as well as prevent decompensation. Narrative Note: []
--- NOTE | 2022-04-17 09:05 | BH.SGPN.GN ---
Behaviors/Verbalizations/Mental Status: [] Eye contact is good. Motor activity is appropriate. Appearance is casual. Speech is Appropriate. Mood is euthymic. Affect is full. Thoughts are linear and logical. No evidence of psychosis. Reviewed daily check in sheet and pt reports 1/5 for suicidal thoughts and 0/5 for intent. Client Response/Progress/Benefit: [] Pt was an active participant in group discussion. Attentive. Daily symptom tracker notes 1/5 for depression and anxiety and 2/5 for anger. Emotion for today is peaceful. Mental health win is I'm here. Pt states I've been more positive lately. Utilizing skills such as though reframing and mindfulness. I'm living more in the moment and taking it day by day which has helped reduce anxiety, stress, and depression. Reports that she is able to identify an anxious thought and not become overwhelmed with it. Current stressors is procrastination and putting things off. Discussed how this is a stressor and how it can impact her mental health. Progress noted per pt report. Benefited from group support, encouragement, and feedback. Will continue in IOP to maintain gains, prevent decompensation, and increase healthy coping skills. Narrative Note: []
--- NOTE | 2022-04-17 10:10 | BH.SGPN.GN ---
Behaviors/Verbalizations/Mental Status: [] Eye contact is good. Motor activity is appropriate. Appearance is casual. Speech is Appropriate. Mood is depressed. Affect is flat. Thoughts are linear and logical. No evidence of psychosis. Client Response/Progress/Benefit: [] Pt was an active participant in group discussions. Attentive during psycho-education on 4 types of conflict styles (Competing, Collaborating, Avoiding, and Accommodating). Worked with group to define conflict and identify how conflict is helpful. With peers identified barriers to addressing or managing conflict which included: fear of upsetting others, embarrassing self, abandonment, past negative experiences with conflict, and shutting down. Pt believes her conflict style is competing with people I find as a threat and avoiding with friends. Benefited from group due to increase insight and awareness of conflict, conflict styles, and obstacles to managing conflict. Will continue in IOP to maintain safety, increase healthy coping, and prevent decompensation. Narrative Note: []
--- NOTE | 2022-04-19 11:25 | BH.COMM ---
Communication Note - Communication with Client Communication Note: Pt scheduled for group and individual session on this date however did not show or call to cancel. Therapist able to contact pt who indicated she forgot she had signed up for group on this date and had overslept. Reports she is doing well and will be in for group as scheduled on Saturday.
--- NOTE | 2022-04-24 08:40 | BH.MDN_ITS ---
Multi-Disciplinary Note - Note 30-min Individual Time Started:: 09:29 Date: 04/24/22 Purpose of session/treatment goals addressed:: The purpose of this session was to review client's progress and strategies that will promote mood stability and maintain gains made in IOP. Another goal was to review discharge recommendations and aftercare planning. Eye Contact:: Good Motor Activity:: Appropriate Appearance:: Casual Speech:: Appropriate Mood:: Euthymic, Anxious Affect:: Congruent Thoughts:: Linear, Logical, No evidence of hallucinations/delusions noted Staff Interventions:: thought challenging, motivational interviewing, discharge planning, strengths perspective, reviewed DSM-5, other - Therapist reviewed supports, warning signs, and coping skills with client to promote gains and prevent setbacks. Client Response:: Client responded well to session, open to meeting with therapist. Stated she was struggling with some negative ruminating thoughts associated with missing group and not calling to cancel the previous week. Discussed feeling like she let the staff and herself down, acknowledging the importance of continuing to prioritize her mental health despite having multiple other obligations. Client discussed feeling she has made much progress in managing her mental health sx and maintaining mood stability since beginning IOP tx and knows continued therapy is important in maintaining these gains. Client able to work with therapist on addressing her guilt and applying self- compassionate approaches to challenge her thoughts. Identified areas of progress to include improved ability to identify warning signs and triggers, increased communication with supports, reduced irritability, improved self-care, and a more positive relationship with herself. Client reviewed strategies for success following discharge and discussed her plan for maintaining progress. Client identified the following strategies to be helpful in managing mental health symptoms: self-talk, deep breathing, taking walks, not isolating, communicating with her supports, thought challenging, asking herself ?is this a self- sabotaging behavior??, and regular check-ins. Client discussed plans to continue with her outpatient therapist, Jeana Schneider, but is additionally interested in working with someone who specializes in borderline personality disorder. Receptive of additional referral resources. Reports plans to follow-up with [facility] [id number] for ongoing medication management and is working with the agency to schedule her initial intake appointment. Risks/Concerns:: Client denies any suicidal ideations, plan, or intent as of 04/24/22. Progress Toward Goals/Plan:: Client has demonstrated progress towards treatment goals as shown by her report of increased ability to cope with mental health sy mptoms despite ongoing stressors. Client reports increased coping skills and better management of her emotions. Client states belief she has made progress with using thought challenging, positive self-talk, and taking breaks to reduce conflict with supports, better manage irritability, and improve overall perspective. Client continues to work on improving her relationship with herself and practice regular independent self-care activities. Client?s aftercare appointments need to be finalized, but she has providers to follow up with including Jeana Schneider for ongoing individual counseling and [id number] for continued medication management. Client will discharge from [facility] on 04/27/22. Client can benefit from one more IOP day to reinforce healthy coping skills and establish aftercare plan. Time Stopped:: 10:04
--- NOTE | 2022-04-24 10:12 | BH.SGPN.GN ---
Behaviors/Verbalizations/Mental Status: []Client alert and oriented, casually dressed and groomed. Eye contact good. Motor activity appropriate. Speech within normal limits. Affect congruent, mood euthymic. Thoughts linear, logical, no signs of hallucinations or delusions. Client Response/Progress/Benefit: []Client responded well to session AEB client listening attentively to others and taking notes. Client was engaged throughout discussion introducing the topic of self care and its importance. Group identified myths about self care, such as self care is selfish, self-indulgent, takes too much time, has to be fun, and has to be earned. Client discussed myth of self care having to be fun, stated sometimes it's not fun to engage in self-care but still necessary. Gave example that exercising or coming to IOP might not be fun or exciting but recognizes it's still important self-care. Client reported it's important to make self-care a priority and intentionally scheduling time to engage in self-care. Client appeared to benefit from increased knowledge of the importance and benefits of self care. Will continue IOP treatment to increase social connection to supports and decrease feelings of hopelessness.
--- NOTE | 2022-04-24 11:20 | BH.SGPN.GN ---
Behaviors/Verbalizations/Mental Status: []Client alert and oriented, casually dressed and groomed. Eye contact good. Motor activity appropriate. Speech within normal limits. Affect congruent, mood euthymic. Thoughts linear, logical, no signs of hallucinations or delusions. Client Response/Progress/Benefit: []Client engaged participant AEB completing self-assessment worksheet and contributing input during discussion. Participated throughout group discussion on the various areas of self-care, benefits, and types of self-care activities for each area. Client completed worksheet which identified current self-care practices and what self-care activities client wants to start using. Client selected spiritual and financial self-care as areas to begin practicing more consistently. Client plans to do this by spending more time in nature, being more creative, and creating a healthy financial plan for her future. Client reports doing well with social self-care and would like to continue to focus on maintaining self-care in this area by practicing regularly reaching out to support. Appeared to benefit from completing the self-care evaluation and gaining insights into current self-care practices, as well as identifying areas in which she would like to improve upon. Will continue IOP tx to maintain gains, continue to promote mood stability and consistent communication with supports, as well as prevent decompensation. Narrative Note: []
--- NOTE | 2022-04-26 10:10 | BH.SGPN.GN ---
Behaviors/Verbalizations/Mental Status: []Pt alert and oriented, neatly dressed and groomed. Eye contact fair-eyes closing at times. Motor activity appropriate. Speech within normal limits. Affect constricted, mood euthymic. Thoughts linear, logical, no signs of hallucinations or delusions. Client Response/Progress/Benefit: []Pt responded well to session AEB sharing and listening attentively to others. Group provided examples of benefits of having social support, including: validation, increased resilience, and better symptom management. Pt also participated in group discussion regarding the barriers to accessing support including personal examples like: overthinking, fear of invalidation, and being told pt should not be feeling a certain way. Pt participated in experiential activity illustrating the impact communication, boundaries, and patience play in creating healthy support systems. Pt appeared to benefit from increased knowledge of the benefits of social support and greater self-awareness. Will discharge from IOP tx today as pt has made significant progress and no longer meets criteria for IOP level of care. Narrative Note: []
--- NOTE | 2022-04-26 11:10 | BH.SGPN.GN ---
Behaviors/Verbalizations/Mental Status: []Pt alert and oriented, neatly dressed and groomed. Eye contact good. Motor activity appropriate. Speech within normal limits. Affect constricted, mood euthymic. Thoughts linear, logical, no signs of hallucinations or delusions. Client Response/Progress/Benefit: []Pt was an active participant throughout AEB contributing to discussion, providing personal examples, and taking notes. Pt provided input during discussion on the types of support our supports can provide. Pt able to identify current support system and barriers that get in the way of using supports. Pt reported after identifying what type of supports pt receives, pt gained awareness that pt could benefit from more tangible support. Pt wants to work on helping out more at home and asking for help more when pt has support. Pt shared this would help pt feel like she is giving more to others and helping herself. Pt seemed to benefit from identifying the type of support pt needs to work on improving. Pt will discharge from IOP tx as she has made significant progress and no longer meets criteria for IOP level of care. Narrative Note: []
--- NOTE | 2022-04-27 14:31 | BH.IGGP_ITS ---
Aftercare Plan - Demographics Treatment End Date:: 05/01/22 Psychiatrist:: Delaney Wong Psychiatrist Office #:: [phone] [facility] Therapist:: Grace Giordano Therapist Phone #:: [phone] - Plan Details Progress/Aftercare Plan Details:: You have made progress in taking the brave step to address your mental health needs rather than continuing to try and ignore or numb them. This is not an easy thing to do and deserves a lot of credit. Continue to make time to prioritize your mental health, even when it?s really hard or you don?t want to, this is jimenez to maintaining the progress you?ve made! Since beginning treatment, you have made strides in your overall ability to replace unhealthy ways of coping (like lashing out at others, bottling things up, numbing yourself with toxic coping skills, or reacting on impulse) with healthier skills. You are now more actively challenging yourself to take a step back and walk away, as well as being honest about how you?re doing before things escalate to the point of crisis. I know this is hard, but it?s important that you continue to be HONEST and regularly check-in with yourself and your supports. Remember to ask yourself, ?Am I tempted to react based on my current emotion, is that going to be helpful or is it a form of self-sabotage??. You have made progress with trying to catch and challenge your negative and distorted thoughts, as well as replace them with more positive self-talk. You have started to really begin challenging your own perspective and trying to see things from another point of view. Keep practicing self-compassion to continue to improve the way you speak to yourself as well. You have come such a long way in beginning to set healthy boundaries with yourself and others by actually identifying what it is that you need and communicating those needs with both yourself and others. I know this has been one of the most difficult things you have been working on since beginning IOP tx. You have made huge strides in self-care and developing a healthier relationship with yourself. Keep working on it and remember that you deserve to love you unconditionally. Self-care is JIMENEZ to continued progress. I know you know this, just don?t forget to practice it! Strategies for Success:: Opposite Action!!! ? do what will help you, even when your brain is saying ?This won?t work? or ?I can?t do it?, even when it feels uncomfortable, even when you are tempted to give up or fall back into unhealthy coping behaviors. Doing the hard, uncomfortable, or anxious thing is not always fun, but it is often the healthier option. Regularly check-in with yourself and ask yourself how you are really doing. Do you recognize any of your warning signs? Are you going to be faced with a potential trigger soon? If you notice you are struggling, use your calming skills and take breaks! Try engaging in a relaxing activity such as 5-senses, taking a walk, stepping away for a minute, or deep breathing. Remember, you are in control of your responses to external stressors! You just have to believe in your own ability to work through those difficult or triggering moments. Challenge negative thought patterns by trying to look at things from another perspective. Remember ?thoughts are thoughts, not facts?. Ask yourself ?How else can I think about this??, ?Do I have to give this thought value??, ?Is there evidence against this thought?, What would I say to someone else??, ?What would my supports say to me if I told them how I was feeling??. Continue to COMMUNICATE, COMMUNICATE, COMMUNICATE! Your supports won?t know how to help if you don?t let them be a part of the conversation. This includes communicating with yourself, your supports (even the ones you don?t always see eye to eye with), your new psychiatrist, and your new therapist! Your mental health needs are important and deserve to be addressed! Don?t forget to communicate what you appreciate from your supports too! BOUNDARIES, BOUNDARIES, BOUNDARIES! Only you can be the one to say ?NO? to keeping the toxic people in your life. Remember, we are also responsible to set boundaries with ourselves as well! Keep challenging yourself to engage in activities that YOU enjoy and make YOU feel refreshed. These should be healthy activities that make you feel refreshed and give you a sense of emotional release. The relationship you have with yourself is the most important relationship you will ever have! Don?t let yourself go back to ignoring it! Remember to keep up with your medications and stay away from temptations to fall back into self-medicating habits. Keep going to therapy! - Appointments Appointments/Referrals to Other Services:: Client has demonstrated progress tow ards treatment goals as shown by her report of increased ability to cope with mental health symptoms despite ongoing stressors. Client reports increased coping skills and better management of her emotions. Client states belief she has made progress with using thought challenging, positive self-talk, and taking breaks to reduce conflict with supports, better manage irritability, and improve overall perspective. Client continues to work on improving her relationship with herself and practice regular independent self-care activities. Client?s aftercare appointments need to be finalized, but she has providers to follow up with including [facility] for ongoing individual counseling and [facility] for continued medication management. Client can benefit from one more IOP day to reinforce healthy coping skills and establish aftercare plan. - Medications Home Medications: Home Medications ondansetron HCl [Zofran] 4 mg PO DAILY 03/14/22 venlafaxine [Effexor XR] 75 mg PO DAILY 30 Days #30 cap 03/28/22
--- NOTE | 2022-04-27 14:33 | BH.DS_ITS ---
Discharge Summary - Demographics Date of Admission:: 03/12/22 Discharge Date: 04/27/22 Presenting Problems at Admission:: Pt is a 21-year-old female who was referred to the [facility] behavioral health IOP program by her counselor due to worsening depression and anxiety for the past 6 months. Reports primary stressor impacting mental health as the end of her 5 year relationship approximately 3 months ago. Reports she had been living with her ex for 1 year which had become verbally and emotionally toxic. Reports recently moving in with her parents due to difficulties in managing her mental health sx and struggling to live alone following the break-up. Reports self-medicating with alcohol daily when not at work up until moving in with her parents 2 weeks ago. Reports independently drinking up to a 6-pack a night and often blacking out or engaging in high-risk behaviors when intoxicated. Reports self-harming via burning while intoxicated approx.. 3 weeks ago. Additionally reports hx of damaging her own property, engaging in high-risk sexual behavior, and lashing out verbally at supports while intoxicated as well. Denies self-harming in the past 3 weeks. Current sx include loneliness, isolation, mood swings, irritability, hopelessness, helplessness, worthlessness, apathy, and guilt. Reports low motivation, decreased concentration, and low energy. Denies active SI, but reports chronic passive thoughts of not caring if she were to . She describes her self as a worrier by nature and reports frequently ruminating negatively. She also was vomiting from anxiety and depression but mostly anxiety. She was vomiting daily but this has improved since recent weeks and is now only vomited once in the past 3 weeks. She denies homicidal ideation, hallucinations, delusions, or symptoms of ruth ever. She admits to being on Prozac in the past and went off her Prozac for 7 months and then restarted it 2 months ago. She felt it was not helping her as much as it did before. Reports current sx are impacting her ability to function at baseline, impacting relationships, and beginning to cause difficulties in regulating emotions in the workplace. Discharge Diagnoses:: 1. Major depressive disorder, recurrent, severe without psychosis. 2. Panic disorder. 3. Borderline personality disorder. 4. Alcohol use disorder Reason for Discharge:: Client has made significant progress towards her treatment goals AEB reduction in DSM-5 symptom scores, self-report of increased ability to manage emotions and negative thoughts, improved relationships, and improved functioning. Client no longer meets criteria for IOP level of care and will transition to outpatient counseling. - Treatment Progress During Treatment & Response: Client has made significant strides since starting IOP as shown by her reduced symptoms, ability to identify and challenge distortions, and overall increased ability to manage emotions and stressors. When Client started IOP, she was severely anxious and depressed resulting in physical, behavioral, and emotional impacts on her functioning. Client was lashing out at supports, not unable to effectively practice self-care, was feeling hopeless, and reported relying on unhealthy means of coping such as alcohol or avoidance. Now, Client is actively using healthy coping skills, practicing self-care, challenging negative thoughts, more effectively communicating with supports, and using the awareness she has gained to manage her emotions. Client contributed to group discussions, offered supportive feedback to peers, and consistently followed through with her goals. In individual sessions, Client was receptive to feedback, consistent with homework, and willing to push herself to improve her relationship with herself and her supports. Client?s DSM-5 scores for depression decreased by 71%, self-harming thoughts and urges decreased by 100%, and anxiety decreased by 75%. Client?s biggest progress was increasing her comfort with being alone and willingness to practice independent self-care to improve her relationship with herself. Client plans to participate in IOP aftercare, and she has outpatient providers through [facility] for individual counseling and [facility] for outpatient psychiatry. Issues Still to be Addressed:: Client can benefit from ongoing mental health counseling to reinforce healthy coping skills and promote ongoing emotion regulation and healthy decision making. Client would benefit from continuing to further improve her coping skills, management of depression and anxiety symptoms, and thought challenging. Client can also benefit from ongoing work on increasing self-compassion and self-esteem. Discharge Recommendations/Instructions:: Client?s aftercare appointments need to be finalized, but she has providers to follow up with including [facility] for ongoing individual counseling and [id number] for continued medication management. Client can benefit from one more IOP day to reinforce healthy coping skills and establish aftercare plan. Discharge Handout: Complete Discharge Handout with client on aftercare options a nd continuity of care.
== END 2022-04-26 12:21 | disposition home or self-care (01) ==
LOC: BHIOP 08:01
PROVIDERS: Referring Provider Psychiatry & Neurology Psychiatry; Visit Provider Psychiatry & Neurology Psychiatry
DX: F33.2 Major depressive disorder, recurrent severe without psychotic features (principal); F41.0 Panic disorder [episodic paroxysmal anxiety]; F60.3 Borderline personality disorder; Z72.89 Other problems related to lifestyle; Z79.899 Other long term (current) drug therapy
CPT/HCPCS: S9480; 90832; 90834; 90853

== ENCOUNTER 2023-09-09 09:58 | Outpatient (RCR) | payer OTHER, SELFPAY ==
--- NOTE | 2023-09-09 13:38 | BH.MDN ---
Multi-Disciplinary Note Note 60-min Individual: Time Started:: 10:03 Date: 09/09/23 Purpose of session/treatment goals addressed:: To gather information on pt's current stressors, symptoms, triggers, and tx goals. Another goal was to build rapport and provide emotional support. Eye Contact:: Good (tearful throughout) Motor Activity:: Appropriate Appearance:: Disheveled and Casual Speech:: Appropriate Mood:: Anxious and Depressed Affect:: Congruent Thoughts:: Linear, Logical and No evidence of hallucinations/delusions noted Staff Interventions:: motivational interviewing, psychoeducation on: (Borderline Personality Disorder), rapport building, strengths perspective and treatment planning Client Response:: Pt responded well to session, open to meeting with therapist. Pt completed the IOP program prior to this admission, 03/12/22-05/02/22, reports she found it helpful at the time. Pt shared she has been experiencing worsening symptoms of anxiety, depression, and mood swings over the past few months due to increased tensions in the relationship with her boyfriend. Pt explained she has been in this relationship for the past year and has struggled with anxiety and paranoia that he is cheating, getting bored of the relationship, or no longer wants to be with her. Pt reports that when she has these intrusive anxious thoughts, she is unable to focus on anything and becomes consumed by her fears. Expressed engaging in several safety behaviors including asking for reassurance, looking through his phone, or texting him multiple times in a row. Pt noted this has created tension in the relationship and resulted in several fights. One fight in which pt had been drinking alcohol resulted in hospitalization as pt was so upset that she became suicidal and impulsively attempted to overdose on medications. Shared she is not currently experiencing suicidal ideation but does continue to have passive thoughts of wanting to overdose on medications when she and her boyfriend argue. Denies specific plan or intent and reports ability to maintain safety. Denies access to excess medication and was willing to have her supports help monitor pt medication to ensure safety. Pt went on to indicate difficulties in managing her emotions and is easily triggered if her boyfriend says or does something that she does not like. Insight into her Borderline Personality Disorder diagnosis and reports trying to help her boyfriend understand her diagnosis and what support she needs as well. Shared that she does not believe her alcohol consumption is an issue; however, bother her father and boyfriend have asked pt not to drink as she often becomes dysregulated and impulsive. Pt denies wanting to reduce alcohol consumption and reports drinking once a week. Pt understands that should her consumption begin interfering with pt?s tx, she will be referred to substance use treatment. Reports wanting to learn skills to better understand Borderline Personality and learn strategies to manage her mental health symptoms in order to better communicate with her supports, reduce reassurance seeking behaviors, and improve her relationship with herself. Risks/Concerns:: Pt denies any active suicidal ideations, plan, or intent as of 09/09/23. Did have a suicide attempt on 06/09/23 via overdose while drinking. Pt reports this was impulsive in nature during an argument. Reports passive thoughts of wanting to to end or stop the pain but reports she does not have intent to act on these thoughts. Reports vague plan of overdosing however denies access to excess medications and is willing to have supports help monitor medications. Pt reports her boyfriend, father, and fear of ?going to a bad place? are protective factors. Reports ability to maintain safety and will reach out to a support, go to local ER, or call crisis is feeling unable to do so at any time. Progress Toward Goals/Plan:: Pt's first day of IOP tx and pt reports she is hopeful she will be able to make positive strides with her mental health through group and individual sessions. Pt endorses a depressed mood, anxiety, poor boundaries, unhealthy coping behaviors, mood swings, reassurance seeking, poor communication, and negative core beliefs. Pt reports her relationship is an ongoing stressor. Reports wanting to learn skills to better understand Borderline Personality and learn strategies to manage her mental health symptoms in order to better communicate with her supports, reduce reassurance seeking behaviors, and improve her relationship with herself. Pt will continue IOP tx to prevent decompensation, gain healthy coping skills, maintain safety, and improve daily functioning.
--- NOTE | 2023-09-09 13:39 | BH.PSA_ITS ---
Source of Information Presenting Problems/Circumstances Problems, Referral Source, Mental Status, Client: The patient is a 23-year-old female with a hx of bipolar disorder, NOS and borderline personality disorder who was referred by her parents to [facility] for worsening depression and emotional instability. The patient was admitted to the ICU in [place] after overdosing on June 09, 2023 and transferred to the psychiatric unit until June 12, 2023. The patient previously participated in the IOP program from March 12 to May 02. She reports the trigger for worsening symptoms and her overdose in June was relationship issues and acting out after arguments with her boyfriend. Psychiatric Presentation Psych Issues & Need for Admission Psychiatric Issues:: erratic mood, depression, anxiety, anger, substance misuse Past Psychiatric History MH Treatment Hx Treatment History: The patient did the IOP at [facility] in 2021. She was first depressed at age 15 and first took meds for this at age 15. She cut herself first at age 15 and did this until age 18 and now does it off and on, last in May. She got counseling first at age 17 after a break-up with a boyfriend. She most recently had counseling in January 2023 but none since. She is not sure how many meds she has been on but includes Prozac and Lexapro in the past. She does have a prison psychiatrist at a clinic for 1 year First hospitalization:: May 2023 Medication Trials:: Yes (Prozac and Lexapro) ECT Therapy:: No Age of first mental health symptoms: 17 Describe (age, circumstance, etc) any past hospitalizations: May 2023 in which pt impulsively overdosed on medication following an argument with her boyfriend. Current providers for mental health treatment (counselor, psychiatrist, telehealth case manager, etc.): No current counselor, will be connected prior to discharge. Psychiat ry services through [facility] Childhood Significant Childhood Events: Pt reports her mother is an alcoholic and and at times neglected the pt. Denies any other trauma and reports overall her childhood was good and loving. Family Who currently lives in your home?: Pt lives at home with her mother and father. Describe family composition:: Pt is the youngest of two daughters. She reports she is close with her sister who is 6 years older than her. Pt reports she has an alright relationship with her parents but that they often do not understand her which leads to conflict at times. Family History Family Hx of Psychiatric or AOD Problems: Mother has anxiety and depression and takes Prozac. Mother and maternal grandmother are alcoholics. Maternal grandmother may have been bipolar. No completed suicides in the family. Ethnicity Culture Do you identify yourself with any particular cultural, ethnic background, or community?: No Sexuality Sexual Orientation: Heterosexual Spirituality Scientology Do you currently identify with any organized pentecostal?: None Mental Status Memory Recent Memory: Fair Remote Memory: Fair Concentration Concentration: Fair Eye Contact Eye Contact: Good Speech Speech: Pressured Thought Process Thought Process: Logical Insight: Poor Judgment: Poor Behavior: Agitated and Anxious Orientation Orientation: Time, Person, Place and Situation Appearance Appearance: Disheveled Mood Mood: Anxious, Preoccupied and Irritable Affect Affect: Appropriate/calm Suicide Assessment Suicidal Ideation Have you ever felt like hurting yourself?: Yes Please explain:: hx of self-harming; prior suicide attempts in May 2023 Were you using ETOH/drugs at the time?: Yes (alcohol) Suicidal Intentional Rating Scale (SIRS): Suicidal thoughts (past) Physician Notification Violent Behavior/Abuse History Homicidal Ideation Do you have any homicidal thoughts? If so, explain:: No Is there a known potential victim? If yes, who:: No Abuse Have you ever been abused?: No Life Events Are there any other significant life events?: Hardships (hx of prior toxic relationship of 5 years) Safety Do you ever feel threatened in your home? If yes, describe:: No Adult Social History Age 20 to Present Describe your current support system:: Parents, several friends, boyfriend of 2 years Substance Use Substance Substance Use Type: Alcohol, Tobacco and Caffeine Leisure/Social Activities Interests What do you enjoy or might be interested in learning about?: Art, working out Education & Occupational Histo Education What is your level of education?: High School Occupation List any current or past employment:: [employer] in [place] for the past 2 years. Service Service Have you ever been in the ?: No Legal History Records Have you had any past legal charges?: No Do you have any current legal charges?: No Have you ever been incarcerated? If yes, describe:: No Court Orders Have you had any past court orders for psychiatric treatment?: No Do you have a present court order for psychiatric treatment?: No Problem Checklist Current Problem Areas Problem List: Depressed mood/sad, Anxiety, Anger/aggression, Impulsivity and Mood swings/hyperactivity Discharge Planning Needs Anticipated Follow-Up Mental Health Center (Name/Phone Number):: [facility] Private Therapist/Psychiatrist:: [facility] Family and Caregiver Contacts:: FatherJohn Release of Information Signed:: Yes Diagnoses Diagnoses Diagnosis #1:: Bipolar disorder, NOS Diagnosis #2:: Borderline personality disorder Diagnosis #3:: Generalized anxiety disorder Diagnosis #4:: Alcohol use disorder Interpretive Summary Interpretive Summary Interpretive Summary: The patient is a 23-year-old female with a hx of bipolar disorder, NOS and borderline personality disorder who was referred by her parents to [facility] for worsening depression and emotional instability. The patient was admitted to the ICU in [place] after overdosing on June 09, 2023 and transferred to the psychiatric unit until June 12, 2023. The patient previously participated in the IOP program from March 12 to May 02, 2022. She reports the trigger for worsening symptoms and her overdose in June was relationship issues and acting out after arguments with her boyfriend. The patient has a history of inconsistency in follow-up with medications and treatment. The patient has a history of self-harm and most recent cut herself in May 2023. She has a history of anger outbursts at her boyfriend and parents. They stated that the patient has a fear of abandonment and has almost daily meltdowns and is sometimes verbally abusive and throws and breaks objects. She endorses irritability and anger, crying, hopelessness, worthlessness, decreased concentration, and passive thoughts of . She denies any thoughts of self-harm or plan for suicide. During the interview the patient admitted that she does not want to be here and that her parents made her come to the [facility]. The patient denies panic attacks, OCD, eating disorder, trauma or PTSD. She denies seizure or head trauma and denies verbal physical or sexual abuse ever. Treatment Plan Recommendations Recommendations Guidelines Recommendations:: Recommended IOP level of care
--- NOTE | 2023-09-09 13:39 | BH.MTP ---
Master Treatment Plan Patient Information Program Physician:: Dr. Delaney Jones Primary Therapist:: PROSPER Rodriguez Psychiatric Diagnoses Psychiatric Diagnoses:: 1.Bipolar disorder, NOS 2. Borderline personality disorder 3. Generalized anxiety disorder 4. Alcohol use disorder Diagnosis Code(s):: F 31.9 Estimated LOS Estimated LOS (in weeks):: 6 Problem/Goal #1 Problem/Goal #1 Stated Goal:: Client will increase mood stability, reduce depression, and reduce irritability due to Bipolar disorder through the Intensive Outpatient Program Description of Barriers: Pt is struggling with anxiety related to her current relationship, pt discussed fears of infidelity or that her boyfriend will become ?toxic? which exacerbates her mental health symptoms. Pt has history of suicide attempt via overdose, impulsivity, and substance misuse. Pt has limited support outside of her parents and boyfriend. Functional Impact: The patient is a 23-year-old female with a hx of bipolar disorder, NOS and borderline personality disorder who was referred by her parents to [facility] for worsening depression and emotional instability. The patient was admitted to the ICU in [place] after overdosing on June 09, 2023 and transferred to the psychiatric unit until June 12, 2023. The patient previously participated in the IOP program from March 12 to May 02, 2022. She reports the trigger for worsening symptoms and her overdose in June was relationship issues and acting out after arguments with her boyfriend. The patient has a history of inconsistency in follow-up with medications and treatment. The patient has a history of self-harm and most recent cut herself in May 2023. She has a history of anger outbursts at her boyfriend and parents. They stated that the patient has a fear of abandonment and has almost daily meltdowns and is sometimes verbally abusive and throws and breaks objects. She endorses irritability and anger, crying, hopelessness, worthlessness, decreased concentration, and passive thoughts of . She denies any thoughts of self-harm or plan for suicide. During the interview the patient admitted that she does not want to be here and that her parents made her come to the IOP. The patient denies panic attacks, OCD, eating disorder, trauma or PTSD. She denies seizure or head trauma and denies verbal physical or sexual abuse ever. Goal Relevant Strengths/Supports: Pt successfully completed IOP tx previously and reported this was helpful. Pt has support from her parents and her boyfriend and job are her protective factors. Objectives Objective #1: Stated Objective: Pt will learn and utilize 2-3 healthy coping strategies to better manage mood and reduce depressive and irritability symptoms and reduce DSM-5 symptoms for depression and irritability. Interventions: Through group and individual sessions, therapist will help pt identify triggers and warning signs of depression and emotional dysregulation including emotional, physical, and behavioral changes. Therapist will teach pt various coping skills to manage her symptoms. Therapist will use cognitive restructuring techniques and help pt gain awareness of negative thoughts that reinforce depressive cycles. Therapist will help pt incorporate mindfulness and emotional regulation skills when dealing with difficult situations. Discharge Criteria: Pt will have met this goal when she can report learning and using at least 2 coping skills to manage dysregulation and mood symptoms and her DSM-5 scores for depression and irritability have decreased. Target Date: 10/21/23 Review Date: 10/02/23 Objective #2: Stated Objective: Client will identify 2-3 cognitive distortions that lead to mood dysregulation and learn 2-3 ways to manage these thoughts to improve mood stability. Interventions: Therapist will assist client in identifying, challenging, and replacing dysfunctional thoughts with positive, more realistic thoughts. Therapist will use CBT and DBT techniques to help client gain awareness of thinking errors and learn how to more effectively handle negative thoughts that reinforce unhealthy coping skills. Discharge Criteria: Pt will have achieved this goal when can verbalize at least 2 cognitive distortions and effectively replace those thoughts with affirmative messages. Target Date: 10/21/23 Review Date: 10/02/23 Problem/Goal #2 Problem/Goal #2 Stated Goal:: Will reduce anxiety and rumination symptoms through increasing emotional regulation and distress tolerance skills. Description of Barriers: Pt is struggling with anxiety related to her current relationship, pt discussed fears of infidelity or that her boyfriend will become ?toxic? which exacerbates her mental health symptoms. Pt has history of suicide attempt via overdose, impulsivity, and substance misuse. Pt has limited support outside of her parents and boyfriend. Functional Impact: The patient is a 23-year-old female with a hx of bipolar disorder, NOS and borderline personality disorder who was referred by her parents to [facility] for worsening depression and emotional instability. The patient was admitted to the ICU in [place] after overdosing on June 09, 2023 and transferred to the psychiatric unit until June 12, 2023. The patient previously participated in the IOP program from March 12 to May 02, 2022. She reports the trigger for worsening symptoms and her overdose in June was relationship issues and acting out after arguments with her boyfriend. The patient has a history of inconsistency in follow-up with medications and treatment. The patient has a history of self-harm and most recent cut herself in May 2023. She has a history of anger outbursts at her boyfriend and parents. They stated that the patient has a fear of abandonment and has almost daily meltdowns and is sometimes verbally abusive and throws and breaks objects. She endorses irritability and anger, crying, hopelessness, worthlessness, decreased concentration, and passive thoughts of . She denies any thoughts of self-harm or plan for suicide. During the interview the patient admitted that she does not want to be here and that her parents made her come to the IOP. The patient denies panic attacks, OCD, eating disorder, trauma or PTSD. She denies seizure or head trauma and denies verbal physical or sexual abuse ever. Goal Relevant Strengths/Supports: Pt successfully completed IOP tx previously and reported this was helpful. Pt has support from her parents and her boyfriend and job are her protective factors. Objectives Objective #1: Stated Objective: Pt will identify 2-3 anxiety triggers and 2 coping skills to use when feeling anxious or irritable to manage anxiety as shown by reducing DSM-5 scores for anxiety. Interventions: Therapist will provide education on anxiety, safety behaviors, and maintenance cycles. Therapist will help pt explore personal symptoms and warning signs of anxiety. Therapist will teach pt coping skills to improve emotional regulation, mindfulness, and distress tolerance to help pt cope with anxiety in the moment. Discharge Criteria: Pt will have accomplished this goal when she can identify at least 2 triggers and report using 2 coping skills to manage anxiety. Additionally, pt will have accomplished this goal AEB reduction of DSM-5 scores for anxiety. Target Date: 10/21/23 Review Date: 10/02/23 Objective #2: Stated Objective: Pt will increase ability to manage stressors and anxiety by gaining 2-3 distress tolerance skills. Interventions: Through group and individual therapy, pt will learn various coping skills to help manage stress and anxiety. Therapist will utilize DBT distress tolerance skills to increase awareness and give pt tools to more effectively manage anxiety. Therapist will provide psychoeducation on emotional regulation and help pt identify unhealthy coping skills she wants to change. Discharge Criteria: Pt will have accomplished this goal when can report improved ability to manage stressors and identify at least 2 distress tolerance skills. Target Date: 10/21/23 Review Date: 10/02/23
--- NOTE | 2023-09-11 09:30 | BH.NA ---
Physical Data Vital Signs Pulse Rate: 81 Blood Pressure: 142/98 Height/Weight Height: 1.68 m Weight:: 88.451 kg Weight in Pounds: 195.0 lbs Current Medication Compliance Medication Compliance Do you take your medication as prescribed?: No (client states she is not very compliant with medication) Nutritional History Appetite Nutritional Instructions: Describe your appetite:: Good Additional nutritional information:: Client states she has gained about 30lbs in the last 6 months and states she does note an increased appetite. Functional Assessment Sleep Pattern Describe any problems with sleeping: Client states she sleeps about 6 hours per night. Sensory/Communication Assess Communication Problems Do you have difficulty understanding what people are saying?: No Medical Problems/History Pain Assessment Do you have acute or chronic pain?: No Surgical History Surgical History Have you had any surgeries? If so, list type and date:: Yes (tonsillectomy) Substance Abuse Substance Abuse Please describe substance abuse in the last 30 days:: Client states she drinks alcohol about 1-2 days per week, usually 2-3 drinks at a time. Client denies tobacco or substance use. Client denies regular caffeine use. Mental Status Summary Mental Status Significant Findings/Observations on Appearance and Mood:: Client is alert and oriented x 4. Client is casually groomed with good hygiene. Client is cooperative with assessment, but makes minimal responses to questions and is tearful throughout assessment. Client makes fair eye contact. Client's voice has normal rate and volume. Client has slightly delayed processing to answering questions. Client denies delusions/hallucinations. Client denies SI at this time. Suicide Assessment Suicidal Ideation Are you currently or have you been suicidal in the past?: Yes Suicidal Intentional Rating Scale (SIRS): Suicidal thoughts (past) (denies current SI) Physician Notification Past Psychiatric History MH Treatment Hx Past Psychiatric Medications:: Effexor, Prozac, many others per client Age of first mental health symptoms: Client states she first took medication for mental health around age 17. Client states she was diagnosed with bipolar disorder in the last year. Describe (age, circumstance, etc) any past hospitalizations: June 2023- [facility] for suicide attempt via overdose Current providers for mental health treatment (counselor, psychiatrist, pillowcase folder, etc.): ROSCOE Roberto at [facility] for psychiatry Fall Risk Assessment Age Age: Less than 60 Mental Status Mental Status: Willing & able to ask for assistance when needed Physical Status Physical Status: No problems Impairments Impairments: None Elimination Elimination: Continent AND independent Gait or Balance Gait or Balance: Walks independently Hx of Falls History of falls in the past 6 months: No known history Medications/Substances Psychotropics:: Antipsychotics Medications/substances used within the past 24 hours or ordered to administer: 1-2 of the medications/substances listed above Total Score Total Points:: 1 RN Summary of Impressions Impressions Recommendations Impressions: Psychiatric Issues: 1. Bipolar disorder, NOS 2. Borderline personality disorder 3. Generalized anxiety disorder 4. Alcohol use disorder Level of Care How do the client's current symptoms and functional deficits support need for this level of care?: Client was in IOP in March 2022, and client has returned at this time after a hospitalization in June 2023 due to a suicide attempt. Client is tearful during the entire assessment and minimally answers questions. Client states she has severe mood swings and anger quite frequently that she takes out on her boyfriend and parents. Client also reports being violent and punching/hitting objects at times. Client denies SI at this time. IOP will promote gains and prevent further decompensation while providing social support and skills training.
[2023-09-11 09:52] VITALS: BP 142/98; PULSE 81
--- NOTE | 2023-09-11 11:10 | BH.SGPN.GN ---
Behaviors/Verbalizations/Mental Status: []Pt alert and oriented, neatly dressed and groomed. Eye contact good. Motor activity appropriate. Speech within normal limits. Affect constricted, mood irritable. Thoughts linear, logical, no signs of hallucinations or delusions. Client Response/Progress/Benefit: []Pt was an active participant throughout AEB contributing to group discussion and taking notes. Pt provided input during small group discussion on strategies to combat each factor maintaining adverse nutritional cycles. Worked with group to identify ways to foster more mindful nutritional choices. Each group participant identified one small step they could take today to begin establishing mental wellness promoting nutritional choices. Pt shared plans to?reduce her alcohol use and wants to practice delay, distract, decide to help with this. Appeared to benefit from gaining insight into mental wellness centered nutrition and identifying personal steps Pt can take to support own nutritional psychology. Recommended continued IOP tx to prevent decompensation, increase distress tolerance skills, and improve mood stability. ? Narrative Note: []
--- NOTE | 2023-09-11 13:18 | BH.PSY.EVA_ITS ---
Psychiatric Evaluation Initial Evaluation Initial Evaluation: History of Present Illness: [] The patient is a 23-year-old female with a history of bipolar disorder and borderline personality disorder who was referred by her parents to the [facility] IOP for worsening depression and emotional instability. The patient currently lives with her parents and has a boyfriend of 2 years who lives 1 hour away. The patient was admitted to the ICU in [place] after overdosing on June 09, 2023 and then she was put in the psychiatric unit after discharge from the ICU and she was discharged from the hospital June 12, 2023 or so. The patient is known to the [facility] as she participated in the program from March 12 to May 02, 2022. 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 The trigger for worsening symptoms recently and her overdose in June was relationship issues and acting out after arguments with her boyfriend. The patient has a history of inconsistency in follow-up with medications and treatment. The patient has a history of self-harm and most recent cut herself in May 2023. The parents were present at the intake with other staff and they reported anger outburst at the boyfriend and at times at the parents. They stated that the patient has a fear of abandonment and has almost daily meltdowns and is sometimes verbally abusive and throws and breaks objects. She endorses irritability and anger and crying along with hopelessness and worthlessness. She denies guilt. She enjoys being with her boyfriend. She is sleeping about 6 hours a night and her energy level is okay. She drinks 2 energy drinks a week. Concentration is decreased and she has had passive thoughts of . At the intake she admitted to fleeting, passive suicidal ideation but denied it during today's interview. She denies any thoughts of self-harm or plan for suicide. Denies also history of ruth or hypomania, homicidal ideation, hallucinations or delusions. During the interview the patient admitted that she does not want to be here and that her parents made her come to the IOP. She was somewhat reticent during the interview and gave brief answers. The patient denies panic attacks, OCD, eating disorder, trauma or PTSD. She denies seizure or head trauma and denies verbal physical or sexual abuse ever. Current Psychiatric Medications: [] Latuda 20 mg with food daily in the evening; Lamictal 25 mg and she takes 75 mg p.o. nightly; Atarax 50 mg twice daily as needed; Catapres of unknown dose or frequency. It is believed she has been on these medications since discharge in June 2023. Past Psychiatric History: [] 1 psych admit in June 2023 as described above and 1 suicide attempt at the same time. The patient did the IOP at [facility] in 2021 as described in present illness. She was first depressed at age 15 and first took meds for this at age 15. She cut her self first at age 15 and did this until age 18 and now does it off and on. She got counseling first at age 17 after a break-up with a boyfriend. She most recently had counseling in January 2023 but none since. She is not sure how many meds she has been on but includes Prozac and Lexapro in the past. She has not had a counselor since discharge from the hospital in June 2023 but she does have a mental health unit lead psychologist at a [facility] for 1 year. Substance Use History: [] First used alcohol at age 18 and used to drink twice a year and she states that now she is using alcohol a lot. She drinks 1 to 2 days a week and sometimes more. She drinks lots of vodka which includes several big glasses but the patient is not able to be more specific about this. She denies morning drinking and denies withdrawal symptoms. She quit cigarettes less than 1 year ago. No marijuana and no other drugs and no rehab ever. Allergies: [] No known allergies. Medications: [] No medications except psych meds as dictated above. Past Medical History: [] Tonsillectomy in the past and occasional dizziness. 0 para 0 female and her menses occur once every other month and sometimes she skips 6 months between periods. She is currently on her menstrual period now. She uses condoms for control. Family Psychiatric History: [] Mother is 49 years old and father is 57 years old. Mother has anxiety and depression and takes Prozac. Mother and maternal grandmother are alcoholics. Maternal grandmother may have been bipolar. No completed suicides in the family. Personal/Social History: [] She was born and raised near [facility] and describes her childhood as good. Parents were but her mother was an alcoholic and was neglectful at times. The patient denies any verbal, physical or sexual abuse growing up. She has 1 sister 6 years older than her and they are close. She did okay in school and graduated high school but did not go to college. 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 She had 1 serious boyfriend for 5 years and they recently broke up in the past. She moved in with her parents over a year ago and has a boyfriend she has had for 2 years now and he is 22 years old and does have a job and lives 1 hour away. They often argue but the patient enjoys being with him. Legal History: [] No arrests. No DUIs. 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 Review of Systems: [] Negative except as noted in present illness. Vital Signs: [] Vital signs reviewed in records and in nurses notes and updated and the patient is deemed medically able to participate in the IOP program. Mental Status Examination: [] The patient is a 23-year-old female who is overweight and appears normal for stated age and is casually dressed and groomed with good hygiene. She has tattoos on her right and left hand. She has no psychomotor agitation or retardation. She is reticent and mildly hostile at times and affect but answers questions appropriately at times and at other times does not answer the question. Eye contact is good and speech is normal rate and rhythm and fluent with no pressure. Mood is depressed. Affect is flat. Thought process is goal-directed and organized. Thought content: There is evidence of passive thoughts of and recent passive suicidal ideation which patient shows no evidence of now. There is no evidence of active suicidal ideation, plan for suicide, homicidal ideation, hallucinations or delusions. There is evidence of resistance to being in the IOP. React reality testing is intact. Intelligence is average. Judgment is intact. Insight is limited. Impulsivity is high. Diagnoses: [] 1. Bipolar disorder, NOS 2. Borderline personality disorder 3. Generalized anxiety disorder 4. Alcohol use disorder 5. Primary support issues Plan: [] Patient will start the IOP program at [facility] as the structure, support, education and group therapy will hopefully prevent worsening of the patient's symptoms which might require hospitalization. She felt safe during the interview and if it anytime she does not feel safe she will let us know or go to the emergency room. The risks, options, possible complications and side effects of the medications were discussed with the patient and she understands and accepts these. She agrees to remain sober from alcohol. She agrees to decrease any use of energy drinks as they can make her anxiety and panic worse. She agrees to increase Latuda to 40 mg p.o. daily with food and prescription is sent in for this. Other medications remain on current doses. She will continue to follow-up with her outpatient providers and I will see her in follow-up in 2 weeks. We will consider increasing Lamictal later if she tolerates the increased Latuda dose.
--- NOTE | 2023-09-11 13:32 | BH.DR.ITP ---
Initial Treatment Plan Patient Information Visit Information: ADMISSION DATE: EXPECTED LOS: 4-6 weeks Problems/Symptoms Problem #1:: Mood instability Symptom:: Irritability, sadness, anger, hopelessness, worthlessness, decreased concentration, passive thoughts of , fleeting, passive suicidal ideation Problem #2:: Anxiety Symptom:: Worry, rumination
--- NOTE | 2023-09-11 15:40 | BH.MDN_ITS ---
Multi-Disciplinary Note Note 60-min Individual: Time Started:: 10:15 Date: 09/11/23 Purpose of session/treatment goals addressed:: Purpose of session was to address current triggers and stressors impacting pt mood and resulting in pt becoming emotionally dysregulated in tx setting. Eye Contact:: Good and Intense Motor Activity:: Restless Appearance:: Disheveled and Casual Speech:: Pressured Mood:: Anxious and Depressed Affect:: Congruent Thoughts:: Logical, Racing, Circular and No evidence of hallucinations/delusions noted Staff Interventions:: motivational interviewing, rapport building, strengths perspective, treatment planning and other (provided emotional support) Client Response:: Pt receptive of session, initially guarded and hesitant to discuss current stressors impacting pt mood and resulting in pt reportedly wanting to discontinue tx. Therapist provided a safe space for pt and reassured her she could share as much or as little as she like. Reiterated that the goal of IOP treatment is to help pt identify skills to best support her mental health and improve her overall quality of life. Pt shared that she is concerned that if she opens up to mental health professionals, they will tell her that her current relationship is toxic and ?in order to get better I will have to end it?. Therapist validated pt concerns and commended her bravery in sharing these concerns. Provided reassurance that the goal is not to tell pt what to do, but rather to help her identify for herself what decisions or changes she may need to implement to best support her own mental health. Discussed with pt that through the treatment process, we can review healthy vs unhealthy relationship traits and potential ?red flag or warning signs? for a toxic relationship, but ultimately, she gets to decide how to interpret and what she wants to do with that information. Pt disclosed that she does not know how to trust her own thoughts at the moment as she struggles with overthinking things and convincing herself of things that may not be true. Shared this has had direct effects on her relationship and she is now unable to decipher whether something is truly toxic or not. Reports wanting to work on this but was also able to acknowledge the importance of working on the relationship with herself to improve her external relationships as well. Pt shared she has become so fixated on her romantic relationship that she has stopped spending time doing the things she enjoys and feels she has lost her self-confidence and sense of self-worth as well. Discussed a desire to continue to work on improve in this area as well. Reports feeling better by end of session and able to trust that the IOP staff will respect her choices in her relationship. No longer reports wanting to d/c. Risks/Concerns:: Pt denies any SI, plan, or intent as of this date, 09/11/23. Protective factors noted, and future oriented. Progress Toward Goals/Plan:: No progress noted. Pt anxiety and intrusive thought regarding her relationship continue to dominate her focus and present substantial difficulties in pt ability to concentrate on any other topics or areas of her life. She reports fears that the relationship is toxic and will have to end despite no supporting evidence, based on pt reports, of toxic behaviors from her partner. Pt reports fears others will tell her to end the r elationship. Pt does however report engaging in several controlling and likely toxic behaviors on her own part. Pt has poor insight and judgement which further complicates things as she often becomes angry and lashes out at her partner when anxious or emotionally dysregulated, ultimately reinforcing fears the relationship will end. Pt recommended continue IOP tx to improve distress tolerance and mood stability, promote healthy communication within her relationships, and maintain safety. Time Stopped:: 11:20
--- NOTE | 2023-09-13 09:00 | BH.SGPN.GN ---
Behaviors/Verbalizations/Mental Status: [Patient was alert and oriented, appropriately dressed and groomed. Eye contact was good, motor activity normal, speech within normal limits. Affect congruent, mood stressed. Thoughts linear, logical, no signs of hallucinations or delusions. Reviewed Patients symptom tracker and the patient reports moderate to severe in agitation/irritability/anger, moderate in depressed mood and anxiety/panic attacks, and low to moderate in self-harm urges. Patient does not report symptoms in thoughts or risk for suicide. ] Client Response/Progress/Benefit: [Patient was engaged and open to the discussion. Patient reported her mood to be ?stressed?. The patients stressor is her house is ?a complete wreck? and needs cleaned. She stated that her mental health and stress has been keeping her from cleaning. She shared that her first win is that she made a list of all the things she needs to do to clean up her house. The second win was that she was able to force herself to come to group although she did not want to due to her mental health. Patient was interactive and respectful with other group members about their mental wins and stressors. Patient benefited from the discussion by listening to feedback and giving input on her peer?s stressors and mental health wins. Patient will continue with IOP treatment to help develop healthy skills, promote mood stability, and improve distress tolerance. ] Narrative Note: []
--- NOTE | 2023-09-13 10:20 | BH.SGPN.GN ---
Behaviors/Verbalizations/Mental Status: [] Eye contact is fair. Motor activity is appropriate. Appearance is disheveled. Speech is Appropriate. Mood is depressed/irritable. Affect is congruent. Thoughts are linear and logical. No evidence of psychosis. Client Response/Progress/Benefit: [] Pt did not participated in group discussions. Attentive AEB note taking. Participated in and was engaged during experiential activity. Attentive and engaged during as peers were able to relate activity to group topic of FOF. Attentive during discussion on what failure means to the group in which peers identified and defined failure. Group was able to identify impact of fear of failure on mental health. Attentive during interactive discussion on the role that FOF plays in mental wellness, depression, anxiety, and growth. Benefited from increased awareness of how the role that FOF plays in mental health and decision-making. Will continue in IOP to prevent decompensation , stabilize mood, and increase healthy coping skills to better maintain relationships. Narrative Note: []
--- NOTE | 2023-09-13 11:15 | BH.SGPN.GN ---
Behaviors/Verbalizations/Mental Status: []Pt alert and oriented, casually dressed and groomed. Eye contact good. Motor activity appropriate. Speech within normal limits. Affect congruent, mood depressed and anxious. Thoughts linear, logical, no signs of hallucinations or delusions. Client Response/Progress/Benefit: [] Pt responded well to session, engaged in the experiential activity and attentive throughout group processing. Pt reported fear of failure has kept Pt from being present and able to enjoy time with loved ones. Pt completed fear of failure worksheet and was able to identify thoughts and behaviors that reinforce personal fear of failure including: negative thinking, doubt, and poor self-esteem. Pt participated in group discussion regarding strategies to overcome fear of failure. Identified wanting to work on starting to improve ability to identify and challenge thought distortions. Appeared to benefit from increased knowledge of strategies to combat fear of failure and gaining self-awareness. Pt will continue IOP tx to promote mood stability, continue to encourage thought challenging, and prevent decompensation. Narrative Note: []
--- NOTE | 2023-09-18 09:00 | BH.SGPN.GN ---
Behaviors/Verbalizations/Mental Status: [Patient was alert and oriented, appropriately dressed and groomed. Eye contact was good, motor activity normal, speech within normal limits. Affect congruent, mood content. Thoughts linear, logical, no signs of hallucinations or delusions. Reviewed Patients symptom tracker and the patient reports moderate/severe in agitation/irritability/anger, low/moderate in anxiety/panic attacks, self-harm urges, and low in depressed mood. The patient does not report symptoms of thoughts/risk of suicide. ] Client Response/Progress/Benefit: [Patient was engaged and open to the discussion. Patient reported her mood to be ?concerned?. The first win was that she got herself to group today although she struggled to get up for it. The second win was that her boyfriend cleaned her room for her to take off some stress and it made her feel good. The patients stressor is that she is not coping well with everyday life. When prompted on what this meant, she stated that things happen during the day and feels she has no control over her reaction to it. When she reflects later in the day, she feels upset with herself. Patient was interactive and respectful with other group members about their mental wins and stressors. Patient benefited from the discussion by listening to feedback and giving input on her peer?s stressors and mental health wins. Patient will continue with IOP treatment to help develop healthy skills, promote mood stability, and improve distress tolerance. ] Narrative Note: []
--- NOTE | 2023-09-18 10:20 | BH.SGPN.GN ---
Behaviors/Verbalizations/Mental Status: []Pt alert and oriented, neatly dressed and groomed. Eye contact good. Motor activity appropriate. Speech within normal limits. Affect constricted, mood anxious. Thoughts linear, logical, no signs of hallucinations or delusions. Client Response/Progress/Benefit: [] Pt responded well to session AEB contributing to discussion, taking notes, and listening attentively to others. Group discussed the benefits of managed anger and anger as a secondary emotion. Pt shared perspective on personal benefits of anger as motivated for change and communication. Pt completed worksheet on anger triggers and personal warning signs of anger. Pt shared she connected a lot with the anger iceberg, sharing that emotions such as fear, rejection, and insecurity trigger anger responses. Appeared to benefit from increased knowledge of the anger cycle as well as personal triggers. Will continue IOP tx to prevent decompensation, gain healthy coping skills, and reduce self-sabotaging behaviors. Narrative Note: []
--- NOTE | 2023-09-18 11:15 | BH.SGPN.GN ---
Behaviors/Verbalizations/Mental Status: Client alert and oriented, casually dressed and groomed. Eye contact poor. Motor activity appropriate. Speech within normal limits. Affect flat, mood depressed. Thoughts linear, logical, no signs of hallucinations or delusions. Client Response/Progress/Benefit: Pt was passive throughout AEB not contributing to discussion and not completing anger cycle reflection. Appeared to listen to group discussion, did not share own perspective. Group finished processing cues to anger worksheet. Pt did not complete personal anger cycle. Pt attentive as group brainstormed healthy coping skills for better managing anger which included: problem solving, walking/exercise, taking a break, grounding tools, reflection, and journaling. Pt appeared to benefit from identifying different techniques to manage anger as well as gaining awareness of potential consequences of unmanaged anger. Progress could be hindered by pt's lack of engagement in group, especially with topic of anger when she has hx of struggling with anger outbursts. Will continue IOP tx to increase engagement in groups, improve distress tolerance, and prevent decompensation.
--- NOTE | 2023-09-18 14:52 | BH.MDN_ITS ---
Multi-Disciplinary Note Note 30-min Individual: Time Started:: 09:53 Date: 09/18/23 Purpose of session/treatment goals addressed:: Purpose of session was to address tx plan goal #1 & #2, as well as begin to discuss the Borderline Personality Disorder relationship cycle and impacts of reassurance seeking behaviors in maintaining this cycle. Eye Contact:: Good Motor Activity:: Restless Appearance:: Disheveled and Casual Speech:: Appropriate Mood:: Anxious and Depressed Affect:: Congruent Thoughts:: Logical, Racing and Circular Staff Interventions:: thought challenging, motivational interviewing, psychoeducation on: (Borderline Personality Disorder Relationship Cycle, effects of reassurance seeking in maintaining anxiety), CBT techniques and strengths perspective Client Response:: Pt receptive of session, openly discussed current sx and stressors impacting her mental health and current relationship. Pt reports continued struggles with intrusive thoughts that her boyfriend is ?toxic? and going to cheat on her, despite no evidence of either of these things. Reports she feels her ?brain makes things so much worse than they are? and that she often jumps to extreme conclusions. Shared that earlier in the week she had looked at his phone and saw his texting algorithm suggested a variety of emojis to use in a potential text. Pt felt some of the emojis indicated he may be texting inappropriately with another female. Denies any other evidence or seeing any texts that would indicate this. Reports he denied this as well as explained that if you don?t use emojis then there is nothing for the algorithm to go off of and it will suggest random emojis. Reports that this explanation had not been sufficient for her and she continued to insist he had engaged in infidelity. Reports this continued and her boyfriend had become frustrated and made a comment that purchasing a gift basket for her for had been ?stupid?. This set pt off and she refused to speak with him for the night. Reports returning home from work later and drinking to the point of intoxication to avoid dealing with her frustrations. Reports ignoring her boyfriend calls during that time as well, which is concerning as pt has a hx of attempting suicide whil e intoxicated during a fight with her boyfriend. Continues to deny that alcohol is a problem for her. Receptive of discussion on toxic behaviors within a relationship and pt able to recognize several of her own toxic traits. Reports she does not know ?why I do this? and is struggling with feeling less excited about the relationship than she had been several months ago. Receptive of beginning to discuss the Borderline Personality Disorder relationship cycle and impacts of reassurance seeking behaviors, which often include monitoring or controlling his behaviors, in maintaining this cycle. Pt shared that if the roles had been reversed she would probably have ended the relationship awhile ago. Reports struggling to accept that reducing reassurance seeking behaviors may actually also begin to reduce her anxiety about him cheating and improve the trust and quality of connection in the relationship. Despite hesitancy to accept this, pt willing to begin taking steps to work on this. Risks/Concerns:: Pt denies any SI, plan, or intent as of this date 09/18/23. Pt does however continue to report impulsive behaviors and emotional outbursts when intoxicated which presents an additional barrier to progress and potential safety concern given pt hx. Pt will continue to be encourage to reduce alcohol consumption and if this is an ongoing barrier to tx, pt will be referred to substance use specific tx. Progress Toward Goals/Plan:: Pt continues to struggle to make progress given her severe intrusive and ruminating thought about her relationship. Pt has difficulties recognizing when her thought distortions are beginning to lead to toxic and self-sabotaging behaviors within her relationship, often resulting in discord and increased conflict. Pt relationship is her primary focus at this time which additionally presents a problem in regard to making consistent progress as pt struggles with focusing on her own self-care, other relationships in her life, or practicing skills she is learning in the moment. Pt continues to use maladaptive coping means, such as alcohol, avoidance, and lashing out to manage her emotions when dysregulated, which continues to present additional stressors and reinforces relationship tensions. Recommended continued IOP tx to reduce reassurance seeking behaviors, gain further insight and active application of healthy skills, as well as prevent decompensation. Time Stopped:: 10:00
--- NOTE | 2023-09-20 09:00 | BH.SGPN.GN ---
Behaviors/Verbalizations/Mental Status: [Patient was alert and oriented, appropriately dressed and groomed. Eye contact was good, motor activity normal, speech within normal limits. Affect congruent, mood content. Thoughts linear, logical, no signs of hallucinations or delusions. Reviewed Patients symptom tracker and the patient reports low to moderate in anxiety/panic attacks, agitation/irritability/anger, and low for depressed mood. Patient does not report symptoms in self-harm urges, or thoughts/risk of suicide.] Client Response/Progress/Benefit: [ Patient was engaged and open to the discussion. Patient reported her mood to be ?tired?. Patients first win was despite how little sleep she got, she still decided she needed to come to group. The second win was that she is has been engaging in a daily skin care routine. Patients stressor was that she has continuously not slept well and it is something she would really like to fix without medication. Patient was interactive and respectful with other group members about their mental wins and stressors. Patient benefited from the discussion by listening to feedback and giving input on her peer?s stressors and mental health wins. Patient will continue with IOP treatment to help develop healthy skills, promote mood stability, and improve distress tolerance. ] Narrative Note: []
--- NOTE | 2023-09-20 10:10 | BH.SGPN.GN ---
Behaviors/Verbalizations/Mental Status: [] Client alert and oriented, casually dressed and groomed. Eye contact good. Motor activity appropriate. Speech within normal limits. Affect congruent, mood euthymic. Thoughts linear, logical, no signs of hallucinations or delusions. Client Response/Progress/Benefit: [] Client was an active participant, AEB taking notes and providing input in group discussions and activities. Attentive during psychoeducation. Client engaged during interactive discussion in which the group defined self-care and discussed its benefits. Group discussed barriers to engaging in self-care. Client identified personal barrier of struggling with time management that gets in the way of making time for self care. Client participated in small groups where they worked to identify common self-care ?myths?. Benefited from increased awareness of self-care, its benefits, and the consequences of not utilizing self-care strategies. Will continue IOP tx to prevent decompensation, promote healthy coping skill application, and increase emotional regulation skills. Narrative Note: []
--- NOTE | 2023-09-20 11:10 | BH.SGPN.GN ---
Behaviors/Verbalizations/Mental Status: [] Client alert and oriented, neatly dressed and groomed. Eye contact good. Motor activity appropriate. Speech within normal limits. Affect congruent, mood euthymic. Thoughts linear, logical, no signs of hallucinations or delusions. Client Response/Progress/Benefit: [] Client engaged participant AEB completing self-assessment worksheet and providing input throughout discussion. Client completed worksheet identifying current self-care practices and what self-care activities client wants to start using. Client selected social self-care to begin practicing more consistently. Client plans to do this by taking a moment to relax and not get so upset by staying off social media. Appeared to benefit from completing the self-care evaluation and gaining insights into current self-care practices, as well as identifying areas in which Client would like to improve upon. Client will continue IOP tx to prevent decompensation, increase emotional regulation skills, and increase use of self care strategies. Narrative Note: []
--- NOTE | 2023-09-23 09:00 | BH.SGPN.GN ---
Behaviors/Verbalizations/Mental Status: [Patient was alert and oriented, appropriately dressed and groomed. Eye contact was good, motor activity normal, speech within normal limits. Affect congruent, mood content. Thoughts linear, logical, no signs of hallucinations or delusions. Patient reported moderate/severe agitation/irritability/anger, moderate in anxiety/panic attacks, and low in depressed mood and thoughts of suicide. Patient does not report symptoms of self-harm urges or risk of suicide.??] Client Response/Progress/Benefit: [Patient was engaged and open to the discussion. Patients society reporter her mood is ?stable??Patients stressor was that she drank a lot on Saturday which made her ?really mean and aggressive? towards her boyfriend. She stated that he was trying to do something nice for her and had a little Halloween libertarian, but she drank too much. The first win was that on Saturday, her boyfriend and her made up and watched football and a movie. The second win was that she continues to struggle getting up early but always is showing up before group starts. Patient was interactive and respectful with other group members about their mental wins and stressors. Patient benefited from the discussion by listening to feedback and giving input on her peer?s stressors and mental health wins. Patient will continue with IOP treatment to help develop healthy skills, promote mood stability, and improve distress tolerance. ] Narrative Note: []
--- NOTE | 2023-09-23 10:10 | BH.SGPN.GN ---
Behaviors/Verbalizations/Mental Status: []Eye contact is fair, at times good. Alert and oriented. Motor activity is appropriate. Appearance is casual. grooming is appropriate. Speech is Appropriate. Mood is anxious. Affect is congruent. Thoughts are linear and logical. No evidence of psychosis or hallucinations. Client Response/Progress/Benefit: []Client active participant throughout group session AEB providing contributions throughout, listening attentively to others, and taking notes throughout session. Group attentive during psychoeducation about emotion regulation and dysregulation. Appeared to connect with scenarios reviewed in group on emotion regulation vs dysregulation. Client shared that she struggles with emotion dysregulation, especially when with her boyfriend. Recognizes her reactions tend to be exaggerate when compared to the situation, but in the moment struggles with taking a step back before responding. Client benefited from session by gaining an increased understanding on the importance of managing emotions. Client to continue IOP to improve distress tolerance, increase healthy coping, and prevent decompensation.
--- NOTE | 2023-09-23 11:10 | BH.SGPN.GN ---
Behaviors/Verbalizations/Mental Status: []Pt alert and oriented, casually dressed and groomed. Eye contact fair. Motor activity restless. Speech within normal limits. Affect constricted, mood anxious. Thoughts linear, logical, no signs of hallucinations or delusions. Client Response/Progress/Benefit: [] Pt engaged in session AEB Pt listening attentively to peers and providing input. Attentive during psychoeducation on 4 zones of regulation. Pt able to identify feelings and behaviors for each zone. Pt identified coping skills one can use to support self in each zone. Identified one skill from each zone she can practice which included: working out, plan fun activity, and belly breathing. Benefited from increased education on zones of regulation or stages of alertness for emotions and healthy coping skills to use for each zone. Will continue IOP tx to improve distress tolerance, challenge distorted thoughts, and prevent decompensation.
--- NOTE | 2023-09-25 11:10 | BH.SGPN.GN ---
Behaviors/Verbalizations/Mental Status: []Pt alert and oriented, casually dressed, appropriately groomed. Eye contact good. Motor activity appropriate. Speech within normal limits, mostly quiet. Affect constricted, mood depressed. Thoughts linear, logical, no signs of hallucinations or delusions. Client Response/Progress/Benefit: [] Pt was engaged during discussion and willing to complete the worksheet challenging them to develop a personal SMART goal. Pt chose the goal of cleaning a small section of her room throughout the week. Pt stated this will benefit pt by ?giving me a clean space? which reduces anxiety. Pt identified barriers which included feeling ?lazy? and having lack of motivation and negative thoughts. Identified solutions such as reaching out anyway, opposite action, and visualizing what pt will feel after they finish cleaning. Pt receptive to identifying solutions for these barriers and willing to begin working on this goal. Benefited from this group by developing a short-term SMART goal related to mental health. Will continue IOP tx to promote mood stability, reduce use of unhealthy coping skills, and improve distress tolerance skills. Narrative Note: []
--- NOTE | 2023-09-25 12:07 | PCM.BH.PN ---
Progress Note Progress Note: History of Present Illness/Interim History: The patient is a 23-year-old female with a history of bipolar disorder, borderline personality disorder who was seen in follow-up at the [facility] behavioral health [facility]. I last saw the patient 2 weeks ago and at that time her Latuda was increased to 40 mg p.o. daily with food. The patient states that the IOP is going well and she feels she is learning in the program despite her resistance to starting it 1 week ago. According to the staff the patient continues to struggle somewhat with emotional regulation and there are still issues with her boyfriend. The patient admits she still has occasional anger outbursts especially at her boyfriend and intensified when she uses alcohol. She is still using alcohol 2-3 times a week but says she only has 1 cup of vodka now when she does drink. She feels her mood is a little more stable on this medication regimen and she has been compliant with it. She denies any self-harm in the past 2 weeks. She still has occasional hopelessness and occasional passive thoughts of . She denies suicidal ideation, homicidal ideation, hallucinations, delusions or ruth. Current Psychiatric Medications: [] Latuda 40 mg p.o. daily with food (x2 weeks); Lamictal 100 mg p.o. nightly (increased a few days ago by outpatient doctor); Atarax 50 mg twice daily as needed; Catapres possibly. Mental Status Examination: [] The patient is a 23-year-old overweight female who appears normal for stated age and is casually dressed and groomed with good hygiene. She has no psychomotor agitation or retardation. She is cooperative during the interview. Eye contact is good and speech is normal rate and rhythm and fluent with no pressure. Mood is depressed. Affect is constricted. Thought process is goal-directed and organized. Thought content: There is evidence of passive thoughts of . There is no evidence of suicidal ideation, plan for suicide, homicidal ideation, hallucinations or delusions. Patient feels the IOP is helping her. Reality testing is intact. Judgment is intact. Insight is limited. Impulsivity is high. Diagnoses: [] 1. Bipolar disorder, NOS 2. Borderline personality disorder 3. Generalized anxiety disorder 4. Alcohol use disorder 5. Primary support issues Plan: [] The patient will continue the IOP in behavioral health at [facility] as the structure, support, education and group therapy will hopefully prevent worsening of the patient's symptoms which could require hospitalization. She felt safe during the interview and if it anytime she does not feel safe she will let us know or go to the emergency room. The patient agrees to try to decrease and eliminate her alcohol use. She agrees to decrease any use of energy drinks and caffeine. No medication changes were made today as her Lamictal was increased 2 days ago. She will continue to follow-up with her outpatient providers and I will see the patient in follow-up in 2 weeks.
--- NOTE | 2023-09-27 09:00 | BH.SGPN.GN ---
Behaviors/Verbalizations/Mental Status: [] Eye contact is good. Motor activity is appropriate. Appearance is casual. Speech is Appropriate. Mood is euthymic. Affect is full. Thoughts are linear and logical. No evidence of psychosis. Reviewed daily check in sheet and no reports of suicidal ideations or intent. Client Response/Progress/Benefit: [] Pt participated at times during the group discussion. Attentive. Daily symptom tracker notes 1/5 for depression/anxiety and 2/5 for irritability. Pt reported being more calm with increased emotion regulation in the past few days. She did not elaborate. Utilizing opposite action to improve mood. Motivated to clean my room this week as this has been a task she has been avoiding. According to pt her dirty room is also a trigger to worsening mental health. Peers provided suggestions to help set small goals to address her room. Progress noted AEB pt's self-report. Benefited from group support, encouragement, and feedback. Will continue in IOP to maintain safety, stabilize mood, and increase functioning. Narrative Note: []
--- NOTE | 2023-09-27 10:05 | BH.SGPN.GN ---
Behaviors/Verbalizations/Mental Status: [] Eye contact is fair. Motor activity is appropriate. Appearance is casual. Speech is Appropriate. Mood is depressed. Affect is flat. Thoughts are linear and logical. No evidence of psychosis. Client Response/Progress/Benefit: []Pt engaged participant AEB listening to others, engaging in activity, and providing feedback at times. Attentive during psychoeducation and provided insight into obstacles in the way of mental wellness. Pt shared with group current mental health reality and desired mental health reality. Stated coming to IOP as one step she is currently making to get closer to desired reality. Identified barriers to desired reality include: Low motivation, fear, overthinking, and unrealistic expectations. Benefited from taking look at current mental health state and obstacles for progress. Pt to continue IOP to improve distress tolerance, challenge distorted thoughts, improve daily functioning, and prevent decompensation.
--- NOTE | 2023-09-27 10:10 | BH.SGPN.GN ---
Behaviors/Verbalizations/Mental Status: []Eye contact is good. Motor activity is appropriate. Appearance is casual. Speech is Appropriate. Mood is anxious and dysthymic. Affect is congruent. Thoughts are linear and logical. No evidence of psychosis. Client Response/Progress/Benefit: []Pt was an active participant in group discussion. Attentive during psychoeducation on SMART goals. Participated in experiential activity. Engaged during interactive discussion on the benefits of setting goals which group identified as; increase self-worth, increase confidence, can motivate us, can lead to personal growth, and can give one a sense of purpose. Participated during interactive discussion on possible obstacles to obtaining goals and pt self-identified barriers as lack of motivation? and excuses. Benefited from increased understanding of benefits of goals, obstacles to obtaining goals, and methods for setting appropriate goals (SMART goals). Will continue in IOP to prevent decompensation, improve mood stability, and further improve ability to challenge negative thoughts. Narrative Note: []
--- NOTE | 2023-09-27 11:10 | BH.SGPN.GN ---
Behaviors/Verbalizations/Mental Status: []Eye contact is good. Motor activity is appropriate. Appearance is casual. Speech is Appropriate. Mood is dysthymic. Affect is constricted. Thoughts are linear and logical. No evidence of psychosis. Client Response/Progress/Benefit: []Pt responded well to session, somewhat engaged throughout, though distracted by own thoughts at times. Provided input when prompted during discussion on what potential internal barriers may be keeping them from reaching their desired reality. Pt was an active participant throughout the interactive activity in which group members problem solved the various internal barriers each pt reports struggling with. Pt identified wanting to work on personal barrier of unrealistic thoughts and shared plans to remind herself that ?thoughts aren?t facts? as a means of overcoming this barrier. Pt appeared to benefit from brainstorming skills to overcome internal barriers, as well as support of the group. Will continue in IOP tx to prevent decompensation, promote skill application, and further encourage use of DBT skills. ? Narrative Note: []
== END 2023-10-01 23:59 ==
LOC: BHIOP 09:58
PROVIDERS: Visit Provider Psychiatry & Neurology Psychiatry
DX: F31.9 Bipolar disorder, unspecified (principal); F60.3 Borderline personality disorder; F41.1 Generalized anxiety disorder; F10.90 Alcohol use, unspecified, uncomplicated
CPT/HCPCS: S9480; 90834; 90837; 90853

== ENCOUNTER 2023-10-02 06:49 | Outpatient (RCR) | payer OTHER, SELFPAY ==
[2023-10-02 00:25] VITALS: BP 142/98; PULSE 81
--- NOTE | 2023-10-02 10:17 | BH.MTP_ITS ---
Treatment Plan Review Demographics Date of Admission:: 09/09/23 Date of Treatment Plan Review:: 10/02/23 Admitting Diagnoses:: 1.Bipolar disorder, NOS 2. Borderline personality disorder 3. Generalized anxiety disorder 4. Alcohol use disorder Current Diagnoses:: 1.Bipolar disorder, NOS 2. Borderline personality disorder 3. Generalized anxiety disorder 4. Alcohol use disorder Patient Status Patient's Response to Treatment:: Pt response to treatment has been variable AEB pt inconsistently attending IOP sessions, often missing one scheduled session per week. Pt does however self-report benefitting from IOP tx. Pt's progress appears to be variable based on the day/week and stressors pt is facing. Pt contributes well during individual sessions and takes notes throughout group sessions, though remains mostly passive in participation. Pt is working on increasing her verbal contributions during group sessions. Pt self-reports difficulties remembering to use coping skills outside of IOP, and often reports the skills only work short-term and then she struggles with continued ruminating thoughts. Pt is reporting working on reducing reassurance seeking behaviors as well. Status of Current Problems and Symptoms: Pt continues to endorse a depressed mood, negative core beliefs, self-harming urges, mood instability, irritability, anxiety, and not feeling connected to her life/ others in her life. Pt is continuing to report her relationship and fear of abandonment are primary stressors. Pt?s father has called on several occasions to discuss ongoing concerns regarding pt mood instability/irritability, and alcohol misuse; though pt denies her alcohol use is a problem. Progress Problem #1: Problem Name:: Irritability, sadness, mood instability. Status of Goals:: Objective 1- complete with ongoing work encouraged. Pt?s DSM-5 symptoms for depression have decreased by 33% since admission; however, irritability scores have remain the same. Pt continues to endorse limited interest and lack of engagement in activities she enjoys outside of spending t erna with her boyfriend. Pt reports using coping skills inconsistently outside of IOP, which continues to reinforce mood instability and tension within relationships with supports. Objective 2- in progress. Pt is able to identify some distortions with assistance after the interaction however, struggles significantly with doing so in the moment. Team Recommendations:: Treatment team recommends pt continue to work on these tx goals. Therapist also encourages pt to increase communication with supports and use of healthy coping skills to manage dysregulation. Pt was encouraged to explore DBT therapy and consider substance abuse supportive services as well. Problem #2: Problem Name:: Rumination, panic, and anxiety. Status of Goals:: Objective 1- complete with ongoing work encouraged. Pt?s DSM-5 scores for anxiety have decreased slightly since admission by 60%. Pt has learned different coping skills to manage anxiety and mood instability. Pt admits that she has not been consistently trying the grounding and emotion regulation skills. Objective 2- in progress. Pt has been able to identify several distress tolerance skills; however, continues to report limited motivation to apply these skills in the moment. Team Recommendations:: Treatment team recommends pt continue to work on these tx goals. Therapist also encourages pt to increase use of emotional regulation and distress tolerance skills. Therapist also encourages pt to communicate with supports and reduce self-sabotaging behaviors.
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
--- NOTE | 2023-10-04 10:15 | BH.SGPN.GN ---
Behaviors/Verbalizations/Mental Status: [] Eye contact is good. Motor activity is appropriate. Appearance is casual. Speech is Appropriate. Mood is anxious. Affect is congruent. Thoughts are linear and logical. No evidence of psychosis. Client Response/Progress/Benefit: [] Pt participated at times during the group discussion. Participated in the group activity and was able to relate the activity to the topic of coping skills. Provided feedback during interactive discussion on coping skills. Group identified aspects that can influence copings skills which included; environment, learned behaviors, past experiences, accessibility, and the amount of effort placed in practicing skills. Discussion on the difference between internal vs external coping skills as well as healthy vs unhealthy coping skills such as; denial, minimization, crying, lashing out, substance abuse, retail therapy, and sleeping to escape. Benefited from increased education on coping skills. Will continue in IOP to prevent decompensation, increase healthy coping, and improve functioning. Narrative Note: []
--- NOTE | 2023-10-04 11:15 | BH.SGPN.GN ---
Behaviors/Verbalizations/Mental Status: [] Client alert and oriented, casually dressed and groomed. Eye contact good. Motor activity appropriate. Speech within normal limits. Affect congruent, mood anxious and euthymic. Thoughts linear, logical, no signs of hallucinations or delusions. Client Response/Progress/Benefit: [] Client responded well to session AEB taking notes and providing input and examples throughout. Group discussed the different categories of coping skills which included distraction, emotional release, grounding, self-love, and thought challenging. Client created a coping skill menu identifying various skills to try in each category. Client?s coping skill menu included: doing something in her room, deep breathing, splashing cold water, doing the necessary self-care activities, and dialectical thinking. Appeared to benefit from increasing repertoire of healthy coping skills. Client will continue IOP tx to improve daily functioning, reduce negative thinking, and increase mood management skills. Narrative Note: []
--- NOTE | 2023-10-09 09:00 | BH.SGPN.GN ---
Behaviors/Verbalizations/Mental Status: [ Patient was alert and oriented, appropriately dressed and groomed. Eye contact was good, motor activity normal, speech within normal limits. Affect congruent, mood content. Thoughts linear, logical, no signs of hallucinations or delusions. Reviewed Patients symptom tracker and the patient reports depressed mood, anxiety/panic attacks, aggravation/irritation/anger, self-harm urges, and risk/thoughts of suicide within patients normal base level.] Client Response/Progress/Benefit: [Patient was engaged and open to the discussion. Patient reported her mood as ?anxious and calm?. The patients first win is that she has started going to the gym again and eating healthier. The second win is that she got her medication upped, and she believes its helping. Patients stressor is that she feels the medication is raising her paranoia.? Patient was interactive and respectful with other group members about their mental wins and stressors. Patient benefited from the discussion by listening to feedback and giving input on his peer?s stressors and mental health wins. Patient will continue with IOP treatment to help develop healthy skills, promote mood stability, and improve distress tolerance. ] Narrative Note: []
--- NOTE | 2023-10-09 10:20 | BH.SGPN.GN ---
Behaviors/Verbalizations/Mental Status: []Pt alert and oriented, neatly dressed and groomed. Eye contact good. Motor activity appropriate. Speech within normal limits. Affect congruent, mood agitated. Thoughts linear, logical, no signs of hallucinations or delusions. Client Response/Progress/Benefit: []Pt was mostly a passive participant in small group discussion. Pt?s group worked together to identify benefits of healthy relationships which included insight, accountability, and guidance. Group identified factors that lead to unhealthy relationships. Pt?s personal factors included codependency and personal insecurities. Actively participated in group experiential activity and expressed ideas to group. Benefited from increased insight and awareness of benefits of healthy relationships and factors that contribute to unhealthy relationships. Will continue IOP tx to increase application of healthy coping skills, improve daily functioning, and gain distress tolerance skills. Narrative Note: []
--- NOTE | 2023-10-09 11:18 | BH.SGPN.GN ---
Behaviors/Verbalizations/Mental Status: [] Client alert and oriented, casually dressed and groomed. Eye contact good. Motor activity appropriate. Speech within normal limits. Affect congruent, mood dysthymic, anxious. Thoughts linear, logical, no signs of hallucinations or delusions. Client Response/Progress/Benefit: [] Client responded well to session, engaged and taking notes throughout. Worked with group to identify how variables contributing to the stability of the ball in the activity with characteristics of healthy and unhealthy relationships. Attentive during psychoeducation about characteristics of healthy, unhealthy, and abusive relationships. Client stated within the relationship with her boyfriend she does well with honesty and communication. Client reported an area she would like to improve in is trust and enjoying her personal time. Client shared she could so by continuing to reduce reassurance seeking behaviors. Appeared to benefit from identifying the current healthy relationship attributes and an area client wants to work on to build healthier relationships. Client to continue IOP to increase mood stability and communication with supports, challenge distortions, and prevent decompensation. Narrative Note: []
--- NOTE | 2023-10-11 09:00 | BH.SGPN.GN ---
Behaviors/Verbalizations/Mental Status: [] Eye contact is good. Motor activity is appropriate. Appearance is casual. Speech is Appropriate. Mood is anxious/irritable. Affect is congruent. Thoughts are linear and logical. No evidence of psychosis. Reviewed daily check in sheet and no reports of suicidal ideations or intent. Client Response/Progress/Benefit: [] Pt participated when prompted. Attentive. Daily symptom tracker notes 3/5 for irritability and 2/5 for depression. States I'm staying more calm about things which has been beneficial for herself and her relationships. She is also continuing with her nighttime routine which has helped ease emotions and thoughts prior to bed. She continues to report significant difficulty when trying to challenge and reframe irrational thoughts or jumping to conclusions. Reports she will interpret what people say (usually negatively) and can't get it our of my head. She can ruminate on this for days. Significant impact on herself and her relationships. Seeking re-assurance often. Group provided feedback and suggestions for ruminations and irrational thoughts which was beneficial. Benefited from group support, encouragement, and feedback. Will continue in IOP to maintain safety, increase healthy coping skills, and improve functioning. Narrative Note: []
--- NOTE | 2023-10-11 11:10 | BH.SGPN.GN ---
Behaviors/Verbalizations/Mental Status: [] Eye contact is fair. Motor activity is appropriate. Appearance is casual. Speech is Appropriate. Mood is dysthymic. Affect is constricted. Thoughts are linear and logical. No evidence of psychosis. Client Response/Progress/Benefit: [] Pt responded well to session, attentive and engaged in group discussions and activity. Group discussed values and the benefits that knowing one's values can have on one's mental health. Pt explored own values and identified personal top values. Pt stated important value is her relationships. Client stated she wants to treat her partner better and hang out with her friends more. Client stated goals to achieve this value is practice healthy tools to be less reactive and intentionally be nice to her support people. Pt appeared to benefit from exploring values and creating a weekly goal. Will continue in IOP to improve distress tolerance, increase healthy coping, and prevent decompensation.
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
--- NOTE | 2023-10-14 10:15 | BH.SGPN.GN ---
Behaviors/Verbalizations/Mental Status: [Patient was alert and oriented, casually dressed and groomed. Eye contact good, motor activity normal, speech within normal limits. Affect congruent, mood content. Thoughts linear, logical, no signs of hallucinations or delusions. ] Client Response/Progress/Benefit: [Patient did not verbally share during the group discussions but showed non-verbal signs of active listening skills and shook her head in response to comments. Attentive during psychoeducation on stages of change. Participated during the activity. Patient benefited from increased awareness of stages of changes and how emotions impact change. Will continue in IOP to promote gains, further combat distorted thinking, and improve daily functioning.] Narrative Note: []
--- NOTE | 2023-10-14 11:08 | BH.SGPN.GN ---
Behaviors/Verbalizations/Mental Status: []Pt alert and oriented, casually dressed and grooming appears disheveled/unkempt. Eye contact good. Motor activity appropriate. Speech within normal limits. Affect congruent, mood dysthymic and anxious. Thoughts linear, logical, no signs of hallucinations or delusions. Client Response/Progress/Benefit: []Pt responded well to session, attentive. Did well to engage in and process activity. Pt worked with group to relate the strategies used to overcome barriers in the activity to managing change in own life. Pt identified wanting to work on improving self-control and emotion regulation when triggered. Pt identified that she is in the contemplation stage of change. Noted that splashing cold water on her face and having her boyfriend remind her to would aid in pt's ability to follow-through with making this change. Pt will continue IOP tx to further improve mood stability, promote continued identification and challenging of distortions, as well as prevent decompensation. Narrative Note: []
--- NOTE | 2023-10-16 09:00 | BH.SGPN.GN ---
Behaviors/Verbalizations/Mental Status: [] Eye contact is good. Motor activity is appropriate. Appearance is casual. Speech is Appropriate. Mood is depressed/irritable. Affect is flat. Thoughts are linear and logical. No evidence of psychosis. Reviewed daily check in sheet and no reports of suicidal ideations or intent. Client Response/Progress/Benefit: [] Pt participated when prompted. Attentive at times. Daily symptom tracker notes 3/5 for agitation and 2/5 for depression/anxiety. Reports that she continues to work double shifts at work however states ? I?m calm at work?, however at home she reports increased conflict with support and emotion dysregulation. She is superficial and does not elaborate. When asked what actions or steps could she take to decrease conflict and emotional distress states ? I don?t know?. Group offered feedback and suggestions which was beneficial. Pt appears to be able to manage her emotions at work well, however when around support it presents as more challenging. Will continue in IOP to prevent decompensation, stabilize mood, and increase healthy coping. Narrative Note: []
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
--- NOTE | 2023-10-18 09:00 | BH.SGPN.GN ---
Behaviors/Verbalizations/Mental Status: [Patient was alert and oriented, appropriately dressed and groomed. Eye contact was good, motor activity normal, speech within normal limits. Affect congruent, mood content. Thoughts linear, logical, no signs of hallucinations or delusions. Reviewed Patients symptom tracker and the patient reports moderate in agitation/irritability/anger, low/moderate in depressed mood and anxiety/panic attacks. The patient does not report symptoms of self-harm urges, or thoughts/risk of suicide. ] Client Response/Progress/Benefit: [Patient was engaged and open to the discussion. Patient reported her mood to be ?tired?. Patients first win is that she has been keeping a routine schedule of going to work and going to the gym. Patient shared her second win as the past few days being uneventful. The stressor was that she is worrying about court and talking to her commercial litigation attorney. Patient was interactive and respectful with other group members about their mental wins and stressors. Patient benefited from the discussion by listening to feedback and giving input on her peer?s stressors and mental health wins. Patient will continue with IOP treatment to help develop healthy skills, promote mood stability, and improve distress tolerance. ] Narrative Note: []
--- NOTE | 2023-10-18 10:10 | BH.SGPN.GN ---
Behaviors/Verbalizations/Mental Status: []Pt alert and oriented, casually dressed and groomed. Eye contact good. Motor activity appropriate. Speech within normal limits. Affect congruent, mood anxious and euthymic. Thoughts linear, logical, no signs of hallucinations or delusions. Client Response/Progress/Benefit: [] Pt receptive to session AEB contributing to small group discussion, as well as listening attentively to others, and taking notes. Worked with group to brainstorm the positive and negative aspects of stress on physical and mental health. Group did well to identify the benefits of stress as well as the impact of distress on performance, relationships, and mental health. Pt identified their personal top stressors as: outdoor preparation, money, self-care, boundaries, and family. Pt reports when their jar is ?overflowing? pt has a lot of anxiety and panic as well as self-criticism. Pt seemed to benefit from increased awareness of current stressors and impact stress has on mental health. Recommended to continue IOP tx to promote mood stability, increase self-confidence, and improve emotional regulation skills. ?
--- NOTE | 2023-10-18 10:15 | BH.SGPN.GN ---
Behaviors/Verbalizations/Mental Status: [Patient was alert and oriented, casually dressed and groomed. Eye contact good, motor activity normal, speech within normal limits. Affect congruent, mood content. Thoughts linear, logical, no signs of hallucinations or delusions. ] Client Response/Progress/Benefit: [Patient was open and participated in group discussions. Attentive during psychoeducation on stress. Participated during the activity. Interactive group discussion on stress in which group verbalized their current stresses in their lives and if certain stressors were larger than others. Patient shared that when she is stressed, she will physically feel sick to her stomach. Patient benefited from increased awareness of the effects of stress on their mental health. Will continue in IOP to promote gains, further combat distorted thinking, and improve daily functioning.] Narrative Note: []
--- NOTE | 2023-10-18 11:15 | BH.SGPN.GN ---
Behaviors/Verbalizations/Mental Status: []Pt alert and oriented, casually dressed and groomed. Eye contact good. Motor activity appropriate. Speech within normal limits. Affect congruent, mood depressed. Thoughts linear, logical, no signs of hallucinations or delusions. Client Response/Progress/Benefit: [] Pt was an active participant in group discussions and experiential activity. Was able to identify the connection between the experimental activity and utilization of stress management skills. Attentive during psychoeducation on the 4 A's (Avoid, adapt, alter, accept) of coping with stress as well as strategies to identify stressors in which one has no control, little control, or a great deal of control over. Pt shared plans to utilize the skill of acceptance by working on sitting with the uncomfortable instead of reacting impulsively. Benefited from increased awareness of stress management strategies. Will continue IOP tx to improve impulse control, increase distress tolerance skills, and reduce use of unhealthy coping skills. ? Narrative Note: []
--- NOTE | 2023-10-21 10:10 | BH.SGPN.GN ---
Behaviors/Verbalizations/Mental Status: []Pt alert and oriented, casually dressed and groomed. Eye contact fair. Motor activity appropriate. Speech within normal limits. Affect constricted, mood dysthymic. Thoughts linear, logical, no signs of hallucinations or delusions. Client Response/Progress/Benefit: []Pt receptive of session, actively engaged throughout AEB taking notes, providing some input, and listening to discussion. Appeared to connect with group topic of cognitive distortions and the impact of thought patterns on mental health, coping behaviors, and relationships. Pt reports utilizes distortions of all or nothing thinking, emotional reasoning, and jumping to conclusions. Pt appeared to benefit from gaining insight on distorted thinking patterns and how this impacts overall mental health. Will continue IOP tx to improve distress tolerance, increase consistent use of healthy coping skills, and prevent decompensation.
--- NOTE | 2023-10-21 11:15 | BH.SGPN.GN ---
Behaviors/Verbalizations/Mental Status: [] Eye contact is good. Motor activity is within normal limits. Appearance is casual, unkempt. Speech is Appropriate. Mood is dysthymic and anxious. Affect is congruent. Thoughts are linear and logical. No evidence of psychosis. Client Response/Progress/Benefit: [] Pt was an active participant during group discussions and activity. Pt was placed in a smaller group and participated in quiz-show format in which small groups competed against each-other to answer questions based on identifying, challenging, and reframing cognitive distortions. Pt was engaged in the smaller group, participated in group interactions to brainstorm answers, and appeared to be comprehending cognitive distortions. Stated learning that ?It is important to use positive self-talk to combat and prevent distortions from 'winning'?. Benefited from gaining further insight and awareness of cognitive distortions as well as practicing ways to reframe and challenge thoughts. Will continue in IOP to promote distress tolerance, stabilize mood, and increase application of healthy coping skills. Narrative Note: []
--- NOTE | 2023-10-21 14:54 | BH.MDN ---
Multi-Disciplinary Note Note 60-min Individual: Time Started:: 09:08 Date: 10/21/23 Purpose of session/treatment goals addressed:: Purpose of session was to address treatment plan goal number one. Eye Contact:: Good Motor Activity:: Appropriate Appearance:: Disheveled and Casual Speech:: Appropriate Mood:: Anxious and Depressed Affect:: Congruent Thoughts:: Linear, Logical and No evidence of hallucinations/delusions noted Staff Interventions:: thought challenging, motivational interviewing, CBT techniques, strengths perspective and taught coping skills (reviewed using dialectical thinking approaches. Additionally identified emotion regulation skills she can use in the moment) Client Response:: Pt receptive of session, actively engaged and receptive of gentle challenging throughout. Pt reports she did well to practice making healthy coping choices over the weekend. Described going to work on Saturday and attending a [employer] Saturday which had both helped her to socialize with healthy supports outside of her boyfriend. Pt indicates she was able to maintain sobriety throughout the weekend as well which further contributed to improvements in her overall mood stability. Shared she has been trying to take steps to prevent herself from repeating the toxic relationship cycles of her past, as she is beginning to see several similarities in her current relationship. Discussed continuing to be triggered by small things he says. Reports that although she is aware she has toxic traits, she often completely blames him for their relationship conflict as she continues to struggle with identifying her toxic behaviors as they occur. Described feeling emotionally exhausted by the amount of fighting they have been doing but does not know how to improve things nor does she want the relationship to end. Insight that the relationship cannot become healthy if they continue to spend much of their time together arguing. Does report improved motivation to attempt more consistently to follow through with application of distress tolerance skills, use of dialects, and asking for clarity prior to responding or reacting to a comment. Discussed plans to continue to ask herself ?Would I expect him to require this of me?? and ?Am I personalizing this right now?? as a means of better identifying and reframing distorted thinking patterns. Pt receptive of scheduling outpatient DBT therapy at end of session to continue to promote progress within her interpersonal relationships as well. Pt additionally identified a goal of improving consistency of her daily personal hygiene routine. Risks/Concerns:: Pt denies SI, plan, or intent as of this date, 11/20/23. Progress Toward Goals/Plan:: Mild progress noted. Pt reports maintaining sobriety and few verbal outbursts or arguments with her parents and boyfriend over the weekend. Did well to engage in social activities with healthy supports as well as attend all scheduled work days without calling off. Does continue to struggle with significant mood instability and difficulties in healthy emotion expression/regulation skills. Pt self-reports ongoing difficulties with motivation which will continue to be a focus of treatment. Recommended continued IOP tx to improve communication, encourage application of distress tolerance and emotion regulation skills, and improve mood stability. Pt has been receptive of scheduling with [facility] for individual DBT treatment as well as [facility] for weekly group counseling services. Will continue in IOP tx to further improve functioning, increase mood stability, and reduce maladaptive coping. Time Stopped:: 10:05
--- NOTE | 2023-10-23 11:42 | BH.COMM ---
Communication Note Communication with Client Communication Note: Did not show for IOP today. Was scheduled to meet with program psychiatrist.
--- NOTE | 2023-10-29 09:05 | BH.SGPN.GN ---
Behaviors/Verbalizations/Mental Status: [] Eye contact is good. Motor activity is appropriate. Appearance is casual. Speech is Appropriate. Mood is irritable. Affect is congruent. Thoughts are linear and logical. No evidence of psychosis. Reviewed daily check in sheet and no reports of suicidal ideations or intent. Client Response/Progress/Benefit: [] Pt participated at times during the group discussion. Attentive. Daily symptom tracker notes 3/5 for depression/anxiety and 2/5 for irritability. Emotion for today is down. Mental health win was getting up and getting here. Shared that her holiday went well however did not elaborate. She talked at length regarding the upcoming winter season stating I don't do well in the winter. She believes that her mood worsens during the winter and there is nothing that I can do about it. Peers offered empathy, support, and feedback. She was dismissive of feedback stating nothing helped in the past. Fixed mindset regarding her ability to manage mood during the winter. November through January is going to suck. No progress noted. Pt's father had called into IOP yesterday stating that she had an anger outburst and left the house over the weekend. police were called and she was evaluated in the ER however discharged. She did not mentions any of this during group this AM noting her holiday went well. Minimizing symptoms and overall reports limited motivation to attempt emotion regulation skills. Plan is for therapist to meet with her this AM on individual basis. Will continue in IOP to prevent decompensation and increase healthy coping. Narrative Note: []
--- NOTE | 2023-10-29 10:10 | BH.SGPN.GN ---
Behaviors/Verbalizations/Mental Status: [] Eye contact is good. Motor activity is appropriate. Appearance is casual. Speech is Appropriate. Mood is euthymic. Affect is congruent. Thoughts are linear and logical. No evidence of psychosis. Client Response/Progress/Benefit: [] Client was an active participant during interactive group discussions. Attentive during psychoeducation on the six types of boundaries (physical, emotional, intellectual, sexual, time, and material) AEB note-taking. Along with peers contributed to interactive discussion on defining what a boundary is in mental health. Client along with peers identified challenges to setting boundaries which included; fear of hurting other people, people pleasing mentality, and guilt. Client along with peers identified the benefits to setting boundaries such as having more time for self, not feeling taken advantage of, and improved mental health. Group discussed the mental health benefits to establishing boundaries at work, school, and home. Client benefited from increased awareness and insight on the importance/benefit to setting health boundaries. Will continue in IOP to increase self worth, stabilize anxiety, and improve functioning. Narrative Note: []
--- NOTE | 2023-10-30 12:19 | BH.COMM ---
Communication Note Communication with Client Communication Note: Pt did not show for scheduled meeting with program psychiatrist. This is the 3rd week in a row that patient has not shown for scheduled appointment with program psychiatrist. She is followed by her outpatient psychiatrist closely, however is aware of need to meet with IOP psychiatrist. Due to the severity of her symptoms treatment team does not believe it would be beneficial to discharge patient solely for missing these appointments as it could result in decompensation.
--- NOTE | 2023-10-31 09:49 | BH.MDN_ITS ---
Multi-Disciplinary Note Note 30-min Individual: Time Started:: 11:30 Date: 10/29/23 Purpose of session/treatment goals addressed:: To address current symptoms, stressors, and triggers that led up to pt's ER visit. Therapist also attempted to call [facility] with pt, but pt declined at this time. Eye Contact:: Good Motor Activity:: Slowed Appearance:: Disheveled Speech:: Soft Mood:: Anxious and Depressed Affect:: Flat Thoughts:: Other (obsessive and anxious) Staff Interventions:: thought challenging, motivational interviewing, strengths perspective and taught coping skills (discussed riding the wave and using DDD to handle strong emotional urges.) Client Response:: Pt responded well to session, but did hesitate to talk with this therapist at first, which is understandable. Pt's usual IOP therapist is out of the office until the end of this week. Pt shared a triggered happened on Saturday last week that has erased all my progress and sent me back. Pt stated she, her sister, and her boyfriend were all shopping when pt heard her boyfriend say something that upset pt. Pt shared he said we'll see about taking a vacation next year and when pt confronted him about this, he denied saying this. Pt did not share why this statement was so upsetting, but pt felt that because he lied about not saying it he is a bad person. Pt connects with borderline personality disorder and she shared that she struggles with thinking too much about things and needing lots of reassurance. Pt sought reassurance several times from therapist during session about her boyfriend being a good or bad person. Pt was also curious to know if someone who genuinely forget something they said. Pt did appear receptive to thought challenging and therapist using dialectical strategies to help to see the brambila in this situation. Pt shared when people lie to her or break her trust, she labels them as bad people and it is hard for pt to see a different perspective. Pt stated her boyfriend constantly tries to prove he is trustworthy, but pt admits that nothing has helped so far, because she is unable to reassurance herself. Ongoing conflict in the relationship and pt was encouraged to not ask her boyfriend again today about the situation on Saturday. Pt reminded that trust is vulnerable and requires a lot of sitting with the uncomfortable. Pt did not want to call [facility] with therapist today and shared she would call with her father today. Risks/Concerns:: Pt denies any active SI, plan, or intent today. Pt recently went to the ER due to suicidal ideations, but was sent home as pt did not have any plan or intent. Pt continues to struggle with severe mood instability that impacts her relationships and daily functioning. Progress Toward Goals/Plan:: Limited progress while in IOP tx. Pt's attendance is not consistent and pt admits that she does not actively use healthy coping skills outside of IOP. Pt struggles with significant mood instability and difficulties in healthy emotion expression/regulation skills which results in frequent conflicts with her boyfriend and parents. Pt self- reports ongoing difficulties with motivation which will continue to be a focus of treatment. Recommended continued IOP tx to improve communication, encourage application of distress tolerance and emotion regulation skills, and improve mood stability. Pt has been receptive of scheduling with [facility] for individual DBT treatment as well [facility], but pt has not followed through with this yet. Will continue in IOP tx to further im prove functioning, increase mood stability, and reduce maladaptive coping. Time Stopped:: 12:05
== END 2023-10-31 23:59 ==
LOC: BHIOP 06:49
PROVIDERS: Visit Provider Psychiatry & Neurology Psychiatry
DX: F31.9 Bipolar disorder, unspecified (principal); F60.3 Borderline personality disorder; F41.1 Generalized anxiety disorder; F10.90 Alcohol use, unspecified, uncomplicated
CPT/HCPCS: S9480; 90832; 90834; 90837; 90853